=== PATIENT | female | born 1980 | race Caucasian/White ===

== ENCOUNTER 2020-09-18 20:01 | Inpatient (IN) | payer BC ==
[2020-09-18] MEDS ORDERED: Ondansetron 4 MG/2 ML SDV IVPUSH ONE (20:38)
[2020-09-18] MEDS ORDERED: HYDROmorphone 0.5 MG/0.5 ML Syringe IVPUSH ONE ×2 (20:38→21:32)
--- NOTE | 2020-09-18 20:43 | EDM.PDOC ---
ED HPI GENERAL MEDICAL PROBLEM - General Chief Complaint: Abdominal Pain Stated Complaint: ABDOMINAL PAIN Time Seen by Provider: 09/18/20 20:25 Source of Information: Reports: Patient History Limitations: Reports: No Limitations - History of Present Illness INITIAL COMMENTS - FREE TEXT/NARRATIVE: 40-year-old female who is been struggling with a week worth of abdominal pain due to diverticulitis. She was evaluated 1 week ago with vaginal pain, was found on ultrasound to have a large rectosigmoid area of the colon so a CT scan confirmed diverticulitis. She was in the hospital for 2 days on IV antibiotics, had a follow-up visit after her hospitalization and a repeat CAT scan that showed no significant change. Her white count had improved but she was still having a lot of pain so they readmitted her for 2 more days and she was discharged 2 days ago. Tonight the pain was so intense she did not think she could drive to [place] where her primary doctor is, so she came in here. No fevers or chills, nausea but no vomiting. She is currently on Cipro and metronidazole. Onset: Gradual Duration: Day(s): (7 days) Location: Reports: Abdomen (Left lower quadrant radiating into the vaginal and perineal area) Improves with: Reports: None Worsens with: Reports: Movement Associated Symptoms: Reports: Loss of Appetite, Malaise, Other (Nausea but no vomiting). Denies: Fever/Chills, Shortness of Breath Left Vaginal Pain Score (Numeric/FACES): 7 - Related Data Allergies Allergy/AdvReac Type Severity Reaction Status Date / Time No Known Allergies Allergy Verified 09/18/20 20:15 Home Meds: Home Meds Ciprofloxacin [Ciprofloxacin HCl] 1 tab PO BID 09/18/20 [History] Propranolol HCl 1 tab PO TID 09/18/20 [History] metroNIDAZOLE [Metronidazole] 1 tab PO TID 09/18/20 [History] Past Medical History HEENT History: Reports: Impaired Vision Gastrointestinal History: Reports: Other (See Below) Other Gastrointestinal History: diverticulitis Neurological History: Reports: Head Trauma Psychiatric History: Reports: ADHD - Infectious Disease History Infectious Disease History: Reports: Chicken Pox - Past Surgical History GI Surgical History: Reports: Cholecystectomy Musculoskeletal Surgical History: Reports: Other (See Below) Other Musculoskeletal Surgeries/Procedures:: discectomy L4-5 2013 Social & Family History - Tobacco Use Tobacco Use Status *Q: Current Every Day Tobacco User Years of Tobacco use: 22 Packs/Tins Daily: 0.5 - Caffeine Use Caffeine Use: Reports: Coffee ED ROS GENERAL - Review of Systems Review Of Systems: See Below Constitutional: Reports: Malaise, Decreased Appetite. Denies: Fever, Chills HEENT: Reports: No Symptoms Respiratory: Denies: Shortness of Breath Cardiovascular: Denies: Chest Pain GI/Abdominal: Reports: Abdominal Pain, Nausea. Denies: Constipation, Diarrhea, Vomiting : Reports: Other (Vaginal and perineal pain, no discharge or dysuria) Musculoskeletal: Reports: No Symptoms Skin: Reports: No Symptoms Neurological: Reports: No Symptoms ED EXAM, GI/ABD - Physical Exam Exam: See Below Exam Limited By: No Limitations General Appearance: Alert, Mild Distress (Looks fairly uncomfortable) Eyes: Bilateral: Normal Appearance (No jaundice) Head: Atraumatic Neck: Supple, Non-Tender Respiratory/Chest: Lungs Clear Cardiovascular: Regular Rate, Rhythm. No: Tachycardia GI/Abdominal Exam: Soft, Tender (Very tender with guarding and rebound tenderness in the left lower quadrant) Neurological: Alert, Oriented Psychiatric: Anxious Skin Exam: Warm, Dry Course - Vital Signs Last Recorded V/S: Last Vital Signs Temp 95.7 F L 09/19/20 02:19 Pulse 51 L 09/19/20 02:19 Resp 16 09/19/20 02:19 BP 106/54 L 09/19/20 02:19 Pulse Ox 96 09/19/20 02:19 - Orders/Labs/Meds Orders: Medication Orders Hydromorphone HCl (Dilaudid) 0.5 mg IVPUSH Q2H PRN PRN Reason: PAIN Last Admin: 09/19/20 02:18 Dose: 0.5 mg Documented by: Admin: 09/19/20 00:13 Dose: 0.5 mg Documented by: GERRY Dextrose/Lactated Ringer's (Dextrose 5%-Lactated Ringers) 1,000 mls @ 150 mls/hr IV ASD[facility]ED [facility] Aztreonam 1 gm/ Sodium (Chloride) 50 mls @ 100 mls/hr IV Q12H ASHLEY Last Admin: 09/18/20 23:28 Dose: 100 mls/hr Documented by: GERRY Ampicillin Sodium/Sulbactam (Sodium 1.5 gm/ Sodium Chloride) 50 mls @ 100 mls/hr IV Q8H ASHLEY Last Admin: 09/19/20 00:09 Dose: 100 mls/hr Documented by: GERRY Labs: Laboratory Tests 09/18/20 09/18/20 Range/Units 20:50 20:50 WBC 11.5 H (4.5-11.0) K/uL RBC 4.79 (3.30-5.50) M/uL Hgb 14.4 (12.0-15.0) g/dL Hct 44.5 (36.0-48.0) % MCV 93 (80-98) fL MCH 30 (27-31) pg MCHC 32 (32-36) % Plt Count 335 (150-400) K/uL Neut % (Auto) 55 (36-66) % Lymph % (Auto) 36 (24-44) % [place] % (Auto) 6 (2-6) % Eos % (Auto) 3 (2-4) % Baso % (Auto) 0 (0-1) % Sodium 141 (140-148) mmol/L Potassium 3.8 (3.6-5.2) mmol/L Chloride 105 (100-108) mmol/L Carbon Dioxide 25 (21-32) mmol/L Anion Gap 10.8 (5.0-14.0) mmol/L BUN 13 (7-18) mg/dL Creatinine 1.3 H (0.6-1.0) mg/dL Est Cr Clr Drug Dosing 62.21 mL/min Estimated GFR (MDRD) 45 L (>60) Glucose 86 (74-106) mg/dL Calcium 9.4 (8.5-10.1) mg/dL Meds: Medications Generic Name Dose Route Start Last Admin Trade Name Freq PRN Reason Stop Dose Admin Hydromorphone HCl 0.5 mg 09/18/20 22:25 09/19/20 02:18 Dilaudid IVPUSH 0.5 mg Q2H PRN Administration PAIN Dextrose/Lactated Ringer's 1,000 mls @ 150 mls/hr 09/18/20 22:25 Dextrose 5%-Lactated Ringers IV ASDIRECTED ASHLEY Aztreonam 1 gm/ Sodium 50 mls @ 100 mls/hr 09/18/20 23:30 09/18/20 23:28 Chloride IV 100 mls/hr Q12H ASHLEY Administration Ampicillin Sodium/Sulbactam 50 mls @ 100 mls/hr 09/19/20 00:00 09/19/20 00:09 Sodium 1.5 gm/ Sodium Chloride IV 100 mls/hr Q8H ASHLEY Administration Discontinued Medications Generic Name Dose Route Start Last Admin Trade Name Wilfrid PRN Reason Stop Dose Admin Hydromorphone HCl 0.5 mg 09/18/20 20:38 09/18/20 20:54 Dilaudid IVPUSH 09/18/20 20:39 0.5 mg ONETIME ONE Administration Hydromorphone HCl 0.5 mg 09/18/20 21:32 09/18/20 21:49 Dilaudid IVPUSH 09/18/20 21:33 0.5 mg ONETIME ONE Administration Sodium Chloride 1,000 mls @ 500 mls/hr 09/18/20 20:45 09/18/20 20:54 Normal Saline IV 500 mls/hr ASDIRECTED ASHLEY Administration Sodium Chloride 85 mls @ 3.5 mls/sec 09/18/20 21:30 09/18/20 21:41 Normal Saline IV 3.5 mls/sec ASDIRECTED ASHLEY Administration Sodium Chloride 1,000 mls @ 500 mls/hr 09/18/20 22:45 Normal Saline IV ASDIRECTED ASHLEY Iopamidol 100 ml 09/18/20 21:22 09/18/20 21:41 Isovue-300 (61%) IV 09/18/20 21:23 100 ml ONETIME ONE Administration Ondansetron HCl 4 mg 09/18/20 20:38 09/18/20 20:54 Zofran IVPUSH 09/18/20 20:39 4 mg ONETIME ONE Administration Sodium Chloride 10 ml 09/18/20 21:22 09/18/20 21:41 Saline Flush FLUSH 09/18/20 21:23 10 ml ONETIME ONE Administration - Re-Assessments/Exams Free Text/Narrative Re-Assessment/Exam: 09/18/20 20:43 An IV will be started, normal saline given and 0.5 mg of IV Dilaudid along with 1 mg of IV Zofran. CBC and BMP obtained, when labs return an IV enhanced contrast of the abdomen pelvis obtained. 09/18/20 21:09 Blood count is 11,500, creatinine slightly elevated at 1.3 and GFR 45, so IV fluids were increased to wide open and a CT of the abdomen and pelvis with IV contrast ordered. 09/18/20 22:15 IMPRESSION: Acute uncomplicated sigmoid diverticulitis. Colonoscopy recommended after resolution of acute symptoms to exclude an underlying mass. Discussed the above findings with Dr. Mendez, he accepted her for admission. She will be on IV Azactam and Unasyn and IV Dilaudid intermittent for pain control. Departure - Departure Time of Disposition: 22:53 Disposition: Admitted As Inpatient 66 Clinical Impression: Diverticulitis large intestine Qualifiers: Diverticulitis bleeding: without bleeding Diverticulitis complication: without perforation or abscess Qualified Code(s): K57.32 - Diverticulitis of large intestine without perforation or abscess without bleeding - Discharge Information Sepsis Event Note (ED) - Evaluation Sepsis Screening Result: No Definite Risk - Focused Exam Vital Signs: Vital Signs Temp Pulse Resp BP 09/18/20 20:12 96.2 F L 88 16 153/100 H
[2020-09-18] MEDS ORDERED: Sodium Chloride 0.9% 1,000 ML IV SCH ×2 (20:45→22:45)
[2020-09-18] MEDS ORDERED: Iopamidol 612 MG/ML 500 ML Multipack Bottle IV ONE (21:22)
[2020-09-18] MEDS ORDERED: Sodium Chloride 0.9% 10 ML Syringe FLUSH ONE (21:22)
--- NOTE | 2020-09-18 22:14 | CRLCT ---
INDICATION: Worsening diverticulitis. TECHNIQUE: IV contrast-enhanced CT abdomen and pelvis. 100 mL Isovue 300 injected. COMPARISON: None. FINDINGS: Cholecystectomy. Mild resulting biliary dilation. Liver, spleen, pancreas, adrenal glands, and kidneys are unremarkable. No bowel obstruction. Appendix is normal. There is diverticulosis involving the sigmoid and descending colon. There is a segment of the sigmoid colon that demonstrates wall thickening and mild adjacent inflammatory change, consistent with diverticulitis. No abscess or free air. No free fluid. Uterus and adnexa are unremarkable. No adenopathy. IMPRESSION: Acute uncomplicated sigmoid diverticulitis. Colonoscopy recommended after resolution of acute symptoms to exclude an underlying mass. Please note that all CT scans at this facility use dose modulation, iterative reconstruction, and/or weight-based dosing when appropriate to reduce radiation dose to as low as reasonably achievable. Dictated by Joaquin Aguiar MD @ Sep 18 2020 10:10PM Signed by Dr. Joaquin Aguiar @ Sep 18 2020 10:13PM
[2020-09-19] MEDS ORDERED: Ampicillin/Sulbactam Na 1.5 GM in Sodium Chloride 0.9% 50 ML IV SCH ×2
[2020-09-19] MEDS: HYDROmorphone 0.5 MG/0.5 ML Syringe IVPUSH PRN ×3 (00:13→07:21)
[2020-09-19] MEDS: Dextrose 5%-Lactated Ringers 1,000 ML IV SCH ×3 (07:21→22:34)
[2020-09-19] MEDS ORDERED: Nicotine 21 MG/24 Hr Patch TRDERM PRN (07:35)
[2020-09-19] MEDS ORDERED: Naloxone 0.4 MG/ML SDV IV PRN (08:00)
[2020-09-19] MEDS: HYDROmorphone/Normal Saline 15 MG/30 ML PCA IV PRN (09:32)
[2020-09-19] MEDS: Ampicillin/Sulbactam Na 3 GM in Sodium Chloride 0.9% 100 ML IV SCH ×3 (09:32→19:25)
[2020-09-19] MEDS: Pantoprazole 40 MG Vial IV SCH (09:43)
[2020-09-19] MEDS ORDERED: Propranolol 40 MG Tab PO PRN (10:23)
[2020-09-19] MEDS: Ondansetron 4 MG/2 ML SDV IVPUSH PRN (12:05)
[2020-09-19] MEDS ORDERED: diphenhydrAMINE 50 MG/ML SDV IVPUSH PRN (13:27)
[2020-09-19] MEDS ORDERED: Fluconazole 100 MG Tab PO ONE (18:15)
[2020-09-19] MEDS ORDERED: Fluconazole 150 MG Tab PO ONE (18:19)
[2020-09-19] MEDS: [UNRECOGNIZED DRUG - REMARK] TRDERM SCH (21:13)
[2020-09-20] MEDS: Ampicillin/Sulbactam Na 3 GM in Sodium Chloride 0.9% 100 ML IV SCH ×4 (01:59→21:02)
[2020-09-20] MEDS: Dextrose 5%-Lactated Ringers 1,000 ML IV SCH ×3 (06:16→22:45)
[2020-09-20] MEDS ORDERED: Meropenem 500 MG SDV ONE (07:07)
[2020-09-20] MEDS: Pantoprazole 40 MG Vial IV SCH (08:23)
--- NOTE | 2020-09-20 09:29 | PN ---
DATE OF SERVICE: 09/19/2020 This is a 40-year-old female now with a third hospitalization over last week for diverticulitis. A CT scan was obtained last night which shows diverticulitis in the pelvis. I suspect she is probably hiding an abscess in that area given the refractoriness to the medical management. She was admitted twice earlier this week in [place] and then discharged with oral antibiotics. On examination, the patient is clinically stable, afebrile with stable vital signs. Does have a fair bit of discomfort in the left lower quadrant and suprapubic area especially where the diverticulitis is located in the sigmoid colon more or less dropping into the pelvis. At this point, the patient appeared to have diverticulitis refractory to medical management. As indicated, I suspect there is probably some abscess hiding within the folds of the colon involving the area of the diverticulitis. Plan will be to proceed with giving the IV antibiotics, later we will switch over to Dilaudid SPECIAL DUTY NURSE and plan a sigmoid colon resection. This is the case we should be able to likely do primary anastomosis. She presently is on Azactam and Unasyn, which should provide adequate coverage. Potential risks of the procedure including bleeding, infection, leaks from the anastomosis requiring temporary colostomy were gone over, possibility she has a viscera, the patient wishes to proceed so we plan for tomorrow morning with general anesthetic, TAP block, and ketamine loading dose infusion. We will give her some enterically 2 hours preoperatively, continue that perioperatively as well. Troy Mendez MD /[id number]
--- NOTE | 2020-09-20 10:08 | PN ---
DATE OF SERVICE: 09/20/2020 SUBJECTIVE: Kyra was admitted on 09/18/2020 for diverticulitis. Kyra will be having surgery today. Case to follow. REVIEW OF SYSTEMS: Negative for any pertinent positives or negatives. OBJECTIVE: GENERAL: Kyra Carreon is a pleasant 40-year-old female. She is alert and orientated. VITAL SIGNS: TPR; 97.8, 44, 16, and blood pressure 92/45. HEENT: Negative. NECK: Supple. HEART: Regular rate and rhythm. LUNGS: Clear. ABDOMEN: Minimally tender in the lower quadrant, right is greater than left. EXTREMITIES: Without peripheral edema. NEUROLOGIC: Intact. PSYCHIATRIC: Normally anxious mood and affect appropriate. ASSESSMENT: Diverticulitis. PLAN: Scheduled for sigmoid colon resection. General anesthesia with TAP block, ketamine loading dose and infusion. Case to follow 09/20/2020. Surgeon: Troy Mendez MD. After preoperative evaluation and discussion of possible risks and possible complications, she wished to proceed with surgical procedure. Gina Hernandez PA-C /[id number]
[2020-09-20] MEDS ORDERED: Ondansetron 4 MG/2 ML SDV ONE (10:38)
[2020-09-20] MEDS ORDERED: fentaNYL 250 MCG/5 ML SDV ONE ×2 (10:38→12:39)
[2020-09-20] MEDS ORDERED: Neostigmine Methylsulfate 1 MG/ML 5 ML Syringe ONE (10:38)
[2020-09-20] MEDS ORDERED: Glycopyrrolate 0.2 MG/ML 5 ML MDV ONE (10:38)
[2020-09-20] MEDS ORDERED: Propofol 200 MG/20 ML SDV ONE (10:38)
[2020-09-20] MEDS ORDERED: Dexamethasone 4 MG/ML SDV ONE (10:38)
[2020-09-20] MEDS ORDERED: Succinylcholine 200 MG/10 ML MDV ONE (10:38)
[2020-09-20] MEDS ORDERED: Rocuronium 50 MG/5 ML Vial ONE ×2 (10:38→13:34)
[2020-09-20] MEDS ORDERED: Ropivacaine 50 ML, dexAMETHasone 8 MG, EPINEPHrine 0.4 MG, Sodium Chloride 0.9% 27.6 ML NERVRT SCH ×4 (11:00)
[2020-09-20] MEDS ORDERED: Ketamine 50 MG in Sodium Chloride 0.9% 49.5 ML IV SCH (11:00)
[2020-09-20] MEDS ORDERED: Ketamine 500 MG/5 ML MDV IV SCH (11:00)
[2020-09-20] MEDS ORDERED: Lactated Ringers 1,000 ML ONE (12:57)
[2020-09-20] MEDS ORDERED: fentaNYL 100 MCG/2 ML SDV ONE (13:35)
[2020-09-20] MEDS ORDERED: hydrOXYzine HCL 100 MG/2 ML SDV IM ONE (14:12)
[2020-09-20] MEDS: Cyclobenzaprine 10 MG Tab PO PRN (14:47)
[2020-09-20] MEDS ORDERED: Pramipexole 0.5 MG Tab PO PRN (15:18)
[2020-09-20] MEDS ORDERED: Meclizine 25 MG Tab PO PRN (15:24)
[2020-09-20] MEDS: hydrOXYzine HCL 100 MG/2 ML SDV IM PRN (16:21)
[2020-09-20] MEDS: Ondansetron 4 MG/2 ML SDV IVPUSH PRN (16:28)
[2020-09-20] MEDS ORDERED: Propranolol 40 MG Tab PO PRN (17:02)
[2020-09-20] MEDS: Acetaminophen 500 MG Tab PO SCH ×2 (17:25→22:47)
[2020-09-20] MEDS: Ketorolac 60 MG/2 ML SDV IM SCH (20:42)
[2020-09-20] MEDS ORDERED: Propranolol 40 MG Tab PO SCH (21:00)
[2020-09-20] MEDS: [UNRECOGNIZED DRUG - REMARK] TRDERM SCH (21:03)
[2020-09-20] MEDS: Fluconazole 100 MG Tab PO SCH (21:03)
[2020-09-20] MEDS: Montelukast 10 MG Tab PO SCH (21:04)
[2020-09-21] MEDS: Ampicillin/Sulbactam Na 3 GM in Sodium Chloride 0.9% 100 ML IV SCH ×4 (02:30→20:15)
[2020-09-21] MEDS: Ketorolac 60 MG/2 ML SDV IM SCH (02:39)
[2020-09-21] MEDS: Acetaminophen 500 MG Tab PO SCH ×4 (04:00→21:41)
[2020-09-21] MEDS: HYDROmorphone/Normal Saline 15 MG/30 ML PCA IV PRN (04:03)
[2020-09-21] MEDS: Cyclobenzaprine 10 MG Tab PO PRN ×3 (07:36→23:39)
--- NOTE | 2020-09-21 07:58 | PN ---
DATE OF SERVICE: 09/21/2020 SUBJECTIVE: Kyra is postoperative day #1. There was some difficulty with pain control last night and she was given some Toradol and states that really made a difference. Pain currently is controlled with the TEMPORARY RECEPTIONIST. She did request some Ensure Protein supplement. She has no other concerns or questions today. OBJECTIVE: GENERAL: Kyra Carreon is a pleasant 40-year-old female. She is alert and orientated. HEENT: Negative. NECK: Supple. HEART: Regular rate and rhythm. LUNGS: Clear. ABDOMEN: Dressings dry and intact. Abdominal binder is on. EXTREMITIES: Without peripheral edema. ASSESSMENT: Exploratory laparotomy: 1. Rectosigmoid colon resection and coloproctostomy. 2. Drainage of pericolonic abscess. 3. Excision of fibrous peritoneal implant, right pelvic wall, and placement of mesh to position omentum into pelvis. 4. Perforated sigmoid colon diverticulitis and periappendiceal abscess and fibrous peritoneal implant, right pelvic sidewall. Date of procedure: 09/20/2020. Surgeon: Troy Mendez MD. PLAN: 1. Ibuprofen 600 mg p.o. q.6 hours scheduled. 2. Schedule, have consent signed for delayed primary closure. Tap block with IV and local sedation, 07:15, 09/22/2020. Surgeon: Troy Mendez MD. 3. N.p.o. after midnight, but may take ibuprofen and Tylenol with sips of water. 4. Discontinue Verduzco. 5. Decrease IV to 75 mL per hour. 6. Regular diet. 7. Protein supplements q.i.d. 8. Dulcolax 10 mg b.i.d. p.o. scheduled. 9. Colace 100 mg b.i.d. oral scheduled. 10.Continue use of incentive spirometer and ambulation. 11.We will evaluate p.r.n. or in a.m. Gina Hernandez PA-C /[id number]
[2020-09-21] MEDS: Bisacodyl 5 MG Tab PO SCH ×2 (08:54→20:16)
[2020-09-21] MEDS: Pantoprazole 40 MG Vial IV SCH (08:55)
[2020-09-21] MEDS: Docusate Sodium 100 MG Cap PO SCH ×2 (08:56→20:16)
[2020-09-21] MEDS: NORETHINDRONE 0.35 MG PO SCH (08:57)
[2020-09-21] MEDS: Amphetamine/Dextroamphetamine Salts 10 MG Tab PO SCH (09:00)
[2020-09-21] MEDS: Amphetamine/Dextroamphetamine Salts 10 MG Cap.ER PO SCH (09:00)
[2020-09-21] MEDS ORDERED: Albuterol/Ipratropium 3.0-0.5 MG/3 ML Neb Soln NEB PRN (09:14)
[2020-09-21] MEDS: Ibuprofen 600 MG Tab PO SCH ×3 (11:27→23:39)
[2020-09-21] MEDS: Dextrose 5%-Lactated Ringers 1,000 ML IV SCH (17:27)
[2020-09-21] MEDS ORDERED: valACYclovir 1,000 MG Tab PO SCH (17:30)
[2020-09-21] MEDS: [UNRECOGNIZED DRUG - REMARK] TRDERM SCH (20:16)
[2020-09-21] MEDS: Fluconazole 100 MG Tab PO SCH (20:16)
[2020-09-21] MEDS: Montelukast 10 MG Tab PO SCH (20:17)
[2020-09-22] MEDS: Ampicillin/Sulbactam Na 3 GM in Sodium Chloride 0.9% 100 ML IV SCH ×4 (02:09→20:24)
[2020-09-22] MEDS: Acetaminophen 500 MG Tab PO SCH ×4 (03:26→23:13)
[2020-09-22] MEDS: Ibuprofen 600 MG Tab PO SCH (05:40)
[2020-09-22] MEDS ORDERED: Bupivacaine 0.5% 50 ML MDV ONE (06:38)
[2020-09-22] MEDS ORDERED: Meropenem 500 MG SDV ONE (06:38)
[2020-09-22] MEDS ORDERED: Lidocaine 1% with EPINEPHrine 1:100,000 50 ML MDV ONE (06:39)
[2020-09-22] MEDS ORDERED: Midazolam 1 MG/ML 2 ML SDV ONE (07:04)
[2020-09-22] MEDS ORDERED: Propofol 200 MG/20 ML SDV ONE (07:04)
[2020-09-22] MEDS ORDERED: fentaNYL 100 MCG/2 ML SDV ONE (07:04)
[2020-09-22] MEDS ORDERED: Ropivacaine 50 ML, dexAMETHasone 8 MG, EPINEPHrine 0.4 MG, Sodium Chloride 0.9% 27.6 ML NERVRT SCH ×4 (07:15)
[2020-09-22] MEDS ORDERED: Ketorolac 60 MG/2 ML SDV ONE (07:28)
[2020-09-22] MEDS ORDERED: Lactated Ringers 1,000 ML ONE (07:29)
--- NOTE | 2020-09-22 08:04 | PCM.SN.2 ---
- Free Text/Narrative Note: 09/22/2020 To Whom it May Concern: Kyra Carreon 1980 Kyra has been hospitalized from 09/18/2020 until present. Return to work will be determined pending condition and will be evaluated at first post operative appointment after discharge. Sincerely, Gina Hernandez PA-C 09/22/2020
[2020-09-22] MEDS: HYDROmorphone/Normal Saline 15 MG/30 ML PCA IV PRN (08:45)
[2020-09-22] MEDS: Bisacodyl 5 MG Tab PO SCH ×2 (08:49→20:26)
[2020-09-22] MEDS: Docusate Sodium 100 MG Cap PO SCH ×2 (08:49→20:26)
[2020-09-22] MEDS: Pantoprazole 40 MG Tab.CR PO SCH (08:49)
[2020-09-22] MEDS: NORETHINDRONE 0.35 MG PO SCH (08:51)
[2020-09-22] MEDS: Amphetamine/Dextroamphetamine Salts 10 MG Cap.ER PO SCH (08:57)
[2020-09-22] MEDS: Amphetamine/Dextroamphetamine Salts 10 MG Tab PO SCH (08:57)
[2020-09-22] MEDS: valACYclovir 1,000 MG Tab PO SCH ×2 (10:51→23:13)
--- NOTE | 2020-09-22 12:18 | PN ---
DATE OF SERVICE: 09/22/2020 SUBJECTIVE: Kyra is n.p.o. She will be going down for a delayed primary closure. Vital signs have been stable. She has had a difficult time getting her pain under control. REVIEW OF SYSTEMS: Remainder of review of systems negative for any pertinent positives and negatives. OBJECTIVE: GENERAL: Kyra Carreon is a pleasant 40-year-old female. VITAL SIGNS: TPR is 96.6, 60, 16, blood pressure 113/59. HEENT: Negative. NECK: Supple. HEART: Regular rate and rhythm. LUNGS: Clear. ABDOMEN: Dressing dry and intact. Abdominal binder is on. EXTREMITIES: Without peripheral edema. ASSESSMENT: Exploratory laparotomy: 1. Rectosigmoid colon resection and coloproctostomy. 2. Drainage of pericolonic abscess. 3. Excision of fibrous peritoneal implant, right pelvic wall and placement of mesh to position omentum into pelvis. 4. Perforated sigmoid colon diverticulitis and periappendiceal abscess and fibrous peritoneal implant right pelvic sidewall. 5. Date of procedure: 09/20/2020. Surgeon: Troy Mendez MD. PLAN: 1. Orders will be written after delayed primary closure. 2. We will evaluate p.r.n. or in a.m. Gina Hernandez PA-C /[id number]
--- NOTE | 2020-09-22 13:11 | US ---
VL Duplex Lwr Ext Veins Ltd Rt INDICATION: right leg numb FINDINGS: Ultrasound examination of the lower extremity using Doppler and compressive technique demonstrates that the common femoral, femoral, and popliteal veins are patent, and negative for thrombus. The calf veins were segmentally visualized and are negative where seen. IMPRESSION: Negative for deep venous thrombosis.
[2020-09-22] MEDS: Ketorolac 30 MG/ML SDV IVPUSH SCH (17:27)
[2020-09-22] MEDS: Dextrose 5%-Lactated Ringers 1,000 ML IV SCH (17:32)
[2020-09-22] MEDS: Fluconazole 100 MG Tab PO SCH (20:25)
[2020-09-22] MEDS: Montelukast 10 MG Tab PO SCH (20:27)
[2020-09-22] MEDS: [UNRECOGNIZED DRUG - REMARK] TRDERM SCH (20:30)
[2020-09-23] MEDS: Ampicillin/Sulbactam Na 3 GM in Sodium Chloride 0.9% 100 ML IV SCH ×4 (02:13→19:52)
[2020-09-23] MEDS: Acetaminophen 500 MG Tab PO SCH ×4 (03:59→21:20)
[2020-09-23] MEDS: Ketorolac 30 MG/ML SDV IVPUSH SCH ×2 (06:03)
[2020-09-23] MEDS: Pantoprazole 40 MG Tab.CR PO SCH (07:00)
[2020-09-23] MEDS: Amphetamine/Dextroamphetamine Salts 10 MG Tab PO SCH (08:15)
[2020-09-23] MEDS: oxyCODONE 5 MG Tab PO PRN ×4 (08:15→21:41)
[2020-09-23] MEDS: Amphetamine/Dextroamphetamine Salts 10 MG Cap.ER PO SCH (08:15)
[2020-09-23] MEDS: Bisacodyl 5 MG Tab PO SCH ×2 (08:16→21:17)
[2020-09-23] MEDS: Docusate Sodium 100 MG Cap PO SCH ×2 (08:16→21:16)
[2020-09-23] MEDS: valACYclovir 1,000 MG Tab PO SCH ×2 (08:17→21:20)
[2020-09-23] MEDS: NORETHINDRONE 0.35 MG PO SCH (08:17)
--- NOTE | 2020-09-23 08:25 | PN ---
DATE OF SERVICE: 09/23/2020 SUBJECTIVE: Kyra had her delayed primary closure yesterday. She had an office Doppler study to rule out DVT for some leg numbness and that has gone away. Pain is controlled with TOBACCO CHECKOUT CLERK and cyclobenzaprine. Vital signs have been stable, up ambulating. Oral intake 1280. Urine output 420 and ROBINA drain put out 20 mL of a light pink drainage. She is passing flatus. REVIEW OF SYSTEMS: Remainder of review of systems negative for any pertinent positives and negatives. OBJECTIVE: GENERAL: Kyra Carreon is a pleasant 40-year-old female. She is alert and orientated. VITAL SIGNS: TPR is 96.8, 64, 16. Blood pressure 122/55. HEENT: Negative. NECK: Supple. HEART: Regular rate and rhythm. LUNGS: Clear. ABDOMEN: Dressing dry and intact. Aquacel dressing is on. EXTREMITIES: Without peripheral edema. ASSESSMENT: 1. Exploratory laparotomy with: a. Rectosigmoid colon resection and coloproctostomy. b. Drainage of pericolonic abscess. c. Excision of fibrous peritoneal implant, right pelvic wall and placement of mesh to position omentum into pelvis. d. Perforated sigmoid colon diverticulitis and periappendiceal abscess and fibrous peritoneal implant, right pelvic sidewall. Date of procedure: 09/20/2020. Surgeon: Troy Mendez MD. 2. Delayed primary closure for open abdominal incision on 09/22/2020. Surgeon: Troy Mendez MD. PLAN: 1. Discontinue TOBACCO CHECKOUT CLERK and continuous pulse ox. 2. Saline lock IV. 3. Discontinue IV Toradol. 4. Ibuprofen 600 mg q.6 hours scheduled p.o. 5. May shower. 6. Oxycodone mg q.4 hours p.r.n. pain. 7. Referral to dietitian for diverticulitis and colon resection. 8. Continue use of incentive spirometer. 9. We will evaluate p.r.n. or in a.m. 10.Plan discharge in a.m. Gina Hernandez PA-C /[id number]
[2020-09-23] MEDS: Ibuprofen 600 MG Tab PO SCH ×2 (12:45→17:26)
[2020-09-23] MEDS: Cyclobenzaprine 10 MG Tab PO PRN ×2 (14:13→21:41)
[2020-09-23] MEDS: [UNRECOGNIZED DRUG - REMARK] TRDERM SCH (21:17)
[2020-09-23] MEDS: Fluconazole 100 MG Tab PO SCH (21:20)
[2020-09-23] MEDS: Montelukast 10 MG Tab PO SCH (21:20)
[2020-09-24] MEDS: Ibuprofen 600 MG Tab PO SCH ×3 (01:37→11:19)
[2020-09-24] MEDS: oxyCODONE 5 MG Tab PO PRN ×3 (01:39→11:19)
[2020-09-24] MEDS: Ampicillin/Sulbactam Na 3 GM in Sodium Chloride 0.9% 100 ML IV SCH ×2 (01:39→08:56)
[2020-09-24] MEDS: Acetaminophen 500 MG Tab PO SCH ×2 (04:28→10:08)
[2020-09-24] MEDS: hydrOXYzine HCL 100 MG/2 ML SDV IM PRN (04:33)
[2020-09-24] MEDS: Pantoprazole 40 MG Tab.CR PO SCH (07:39)
[2020-09-24] MEDS: NORETHINDRONE 0.35 MG PO SCH (08:14)
[2020-09-24] MEDS: valACYclovir 1,000 MG Tab PO SCH (08:24)
[2020-09-24] MEDS: Amphetamine/Dextroamphetamine Salts 10 MG Tab PO SCH (08:27)
[2020-09-24] MEDS: Amphetamine/Dextroamphetamine Salts 10 MG Cap.ER PO SCH (08:27)
--- NOTE | 2020-09-24 11:47 | DISCH ---
ADMISSION DIAGNOSES: Diverticulitis, attention deficit hyperactivity disorder, nicotine addiction, recent recurrence of concussion symptoms. DISCHARGE DIAGNOSES: 1. Exploratory laparotomy with: a. Rectosigmoid colon resection and coloproctostomy. b. Drainage of pericolonic abscess. c. Excision of fibrous peritoneal implant, right pelvic wall, and placement of mesh to position omentum into pelvis. d. Perforated sigmoid colon diverticulitis and periappendiceal abscess and fibrous peritoneal implant, right pelvic sidewall. Date of procedure 09/20/2020. Surgeon: Troy Mendez MD 1. Delayed primary closure of open abdominal incision, 09/22/2020. Surgeon: Troy Mendez MD. HISTORY: Kyra is a 40-year-old female who presented to the emergency room with increasing abdominal pain and known diverticulitis. She was admitted to the hospital on 09/18/2020, had a surgical consult, and was on IV antibiotics, and her surgery as stated above was on 09/20/2020 with delayed primary closure 09/22/2020. She had no operative complications. Her diet was advanced as tolerated. Vital signs remained stable. Pain was controlled initially with a CERTIFIED CREDIT COUNSELOR, then oral pain medication. She had bowel movements starting on 09/23/2020 after bowel stimulation and she had a total of 7. Kyra received dietary instruction and she was able to be discharged to home without any complications on 09/24/2020. PHYSICAL EXAMINATION: GENERAL: Kyra Carreon is a 40-year-old female, alert and oriented. VITAL SIGNS: TPR is 97.4, 66, 16, blood pressure 116/62. HEENT: Negative. NECK: Supple. HEART: Regular rate and rhythm. LUNGS: Clear. ABDOMEN: Monica intact. Aquacel dressing was changed. There is more tenderness to the right of the incision than the left. EXTREMITIES: Without peripheral edema. DISPOSITION: Discharged to home. CONDITION: Stable and improving. FOLLOWUP APPOINTMENT: Troy Mendez MD, on 09/29/2020 at 10 a.m. HOME MEDICATIONS: 1. Oxycodone 5 mg p.o. q.4 hours p.r.n. pain, #42. 2. Ibuprofen 600 mg p.o. q.6 hours, #40. 3. Tylenol 1000 mg q.6 hours p.r.n. pain. 4. Flexeril 10 mg p.o. q.8 hours p.r.n. muscle spasms, #30. She is to resume her home medications. DIET: GI, low residue, low-fiber diet. Drink 8 to 10 glasses of water a day. ACTIVITY: No lifting greater than 10 pounds for 6 weeks. OTHER ACTIVITY: Walk 6 times daily inside your home. Driving, do not drive for 1 week or within 6 hours of taking narcotic pain medication. Shower/bathing: May shower. Wound incision care: Keep operative site clean and dry. Wear an abdominal binder for 6 weeks and then as tolerated. Notify provider if any fever, increased pain, swelling, redness, drainage, nausea, vomiting. OTHER INSTRUCTIONS: Take off Aquacel dressing in 3 days. Use incentive spirometer 10 times every hour while awake for 1 week. /[id number]
--- NOTE | 2020-09-27 15:46 | PN ---
DATE OF SERVICE: 09/22/2020 The patient has been afebrile with stable vital signs. She had quite a bit of pain after having a sneeze or cough yesterday. The THERAPEUTIC ACTIVITIES SERVICES WORKER along with ibuprofen and Tylenol have not been satisfactory as far as pain control. I am wondering if the drug is somewhat interfering with the narcotic use and we will stop that today. Otherwise, move over to some IM Toradol today and Flexeril and she did undergo the delayed primary closure. She feels like she is getting a fever blister on her lips and we will start on Valtrex. ROBINA drain will be coming out. Resume regular diet after the closure along with the bowel stimulation. Troy Mendez MD /[id number]
--- NOTE | 2020-09-27 15:52 | OR ---
DATE OF PROCEDURE: 09/22/2020 SURGEON: Troy Mendez MD PREOPERATIVE DIAGNOSIS: Open abdominal incision. POSTOPERATIVE DIAGNOSIS: Open abdominal incision. OPERATIVE PROCEDURE: Delayed primary closure of open abdominal incision. ANESTHESIA: IV sedation plus local. INDICATION FOR PROCEDURE: This is a 40-year-old status post a rectosigmoid resection for a perforated diverticulitis with pericolonic abscess. Because of the high risk of wound infection, the skin and subcutaneous tissue were left open at the initial procedure for a planned delayed primary closure at this time. Potential risks including bleeding and infection were reviewed, and the patient wishes to proceed. DETAILS OF PROCEDURE: The patient was taken to the operating room, placed in a supine position. IV sedation was administered, after which the abdominal dressing was taken down. The wound was inspected, found to be clean. Wound was then prepped and draped, anesthetized with 1% lidocaine mixed with Marcaine, and irrigated with meropenem-containing saline solution. Bilateral transversus abdominis plane blocks were then placed using ultrasound guidance. Incision was then closed with three layers of 3-0 and 4-0 Vicryl stitch deep and then glenn for the skin. Dressing was applied. The patient was taken to the recovery room in satisfactory condition. Troy Mendez MD /[id number]
--- NOTE | 2020-10-11 12:15 | OR ---
DATE OF PROCEDURE: 09/20/2020 SURGEON: Troy Mendez MD PREOPERATIVE DIAGNOSIS: Perforated sigmoid colon diverticulitis with pericolonic abscess. POSTOPERATIVE DIAGNOSES: 1. Perforated sigmoid colon diverticulitis with pericolonic abscess. 2. Fibrinous peritoneal implant, right-sided pelvic sidewall. OPERATIVE PROCEDURE: Exploratory laparotomy with: 1. Rectosigmoid colon resection with coloproctostomy (21844). 2. Drainage of pericolonic abscess (88193). 3. Excision of fibrinous peritoneal implant, right pelvic sidewall (64109). 4. Mobilization of omentum into pelvis to displace small bowel from pelvic wall to limit adhesion formation at that level (40979). ANESTHESIA: General. LEARNING AND DEVELOPMENT SPECIALIST: Gina Hernandez PA-C INDICATION FOR PROCEDURE: This is a 40-year-old female who recently has been hospitalized twice for diverticulitis and on CT scan appeared to have a perforated diverticulitis with focal pericolonic abscess. The plan is to proceed with an exploratory laparotomy, colorectal resection with probable primary anastomosis and drainage of abscess as indicated. Potential risks of the procedure including bleeding, infection, leaks from GI tract closure such as coloproctostomy potentially requiring a secondary colostomy were gone over along with injury to the other pelvic and abdominal structures and the patient wishes to proceed. DETAILS OF PROCEDURE: The patient was taken to the operating room and placed in a supine position. After general endotracheal anesthesia was induced, a Verduzco catheter was inserted, and the patient converted to a lithotomy position. The abdominal prep was undertaken along with perianal prep. Lower midline incision from the umbilicus to the pubis was made and carried down through the full-thickness abdominal wall. Upon entering the peritoneal cavity, some omental adhesions over the area of inflammation which was fairly low within the pelvis were identified. As one mobilized the inflammatory mass consisting of the distal sigmoid colon more or less just above the junction with the rectum was undertaken. The abscess which measured around 10 to 15 mL in volume and contained a creamy purulent material was drained. Cultures of this were obtained. During the course of dissection, an area of fibrinous peritoneal implant on the right pelvic sidewall measuring around 1 cm was identified and excised and sent as a separate specimen. The rectum was then divided just below the level of the inflammation of the ELHAM curved black load and the colon then divided proximal to the inflammation with ELHAM purple load. The underlying mesentery was then divided with mesenteric and vascular ELHAM loads and the specimen delivered from the field. Off the field, the specimen was opened where it was confirmed there appeared to be no evidence of neoplasia, i.e. there appeared to be otherwise straightforward diverticulitis with the complications as outlined above. At this point, the anvil of a 28 mm EEA stapler was passed through a small opening made in the divided sigmoid colon which was then restapled and the anvil brought out through the most dependent portion of the staple line and just posterior to the staple line through the rectum and the main body of the EEA stapler was brought up to the apex of the divided rectum and the 2 components of the stapler then united, thus completing the coloproctostomy. Upon removal of the stapler, double donuts of mucosa were noted within it and the stapler then removed. The colorectal anastomosis was then reinforced with several seromuscular 3-0 Vicryl sutures along with fibrin sealant. Prior to closure, the colonoscope was passed into the rectum to visualize the anastomosis and the pelvis was flooded with a meropenem-containing saline solution which was also used to irrigate the pelvis. No leaks were seen and an intact- appearing anastomosis was evident. At this point, a Jarret-Cary drain was taken out through the right midabdomen positioned adjacent to the colorectal anastomosis, and from there down into the depths of the pelvis. The omentum was then mobilized down into the pelvis and sutured there with some 3-0 Vicryl stitch so as to prevent or limit small-bowel adhesion formation within the pelvis. The midline peritoneum was then approximated with #2 Vicryl stitch and the anterior fascia was approximated with a #2 Vicryl stitch. The skin and subcutaneous tissue were felt to be high risk for wound infection if a primary anastomosis was undertaken. Given this, these were packed open with Iodoform gauze. Prior to closure, the patient had bilateral transversus abdominis plane blocks placed and the patient taken to the recovery room in satisfactory condition. Physician energy assistant, Gina Hernandez, played an essential role in assisting in this case, helping to position the patient, retract structures as needed as well as suturing and cutting sutures when indicated. Her presence improved patient safety and decreased the operative time. Troy Mendez MD /[id number]
== END 2020-09-24 11:45 | disposition home or self-care (01) | DRG 221 ==
LOC: JP.ED 20:01 → JP.MS 22:46
PROVIDERS: ADMIT Surgery; ATTEND Surgery
PROC: XW033N5 Introduction of Meropenem-vaborbactam Anti-infective into Peripheral Vein, Percutaneous Approach, New Technology Group 5 (ICD-10-PCS; 2020-09-20)
PROC: 0DBW0ZZ Excision of Peritoneum, Open Approach (ICD-10-PCS; 2020-09-20)
PROC: 0DNU0ZZ Release Omentum, Open Approach (ICD-10-PCS; 2020-09-20)
PROC: 0DBN0ZZ Excision of Sigmoid Colon, Open Approach (ICD-10-PCS; 2020-09-20)
PROC: 0DBP0ZZ Excision of Rectum, Open Approach (ICD-10-PCS; 2020-09-20)
PROC: 0W9G0ZZ Drainage of Peritoneal Cavity, Open Approach (ICD-10-PCS; 2020-09-20)
PROC: 0WQF0ZZ Repair Abdominal Wall, Open Approach (ICD-10-PCS; principal; 2020-09-22)
DX: K57.20 Diverticulitis of large intestine with perforation and abscess without bleeding (principal); H54.7 Unspecified visual loss; F90.9 Attention-deficit hyperactivity disorder, unspecified type; F17.200 Nicotine dependence, unspecified, uncomplicated
CPT/HCPCS: 36415; 74177; 80048; 85025; 87070; 87075; 87077; 87205; 88305; 88307; 93971-26; 93971-RT; 94640; 94762; 96374; 96375; 96376; 99285; 99285-25; A9270-GY; C9113; J0171; J0295; J0330; J1100; J1170; J1200; J1885; J2185; J2250; J2405; J2704; J2710; J2795; J3010; J3410; J3490; J7030; J7120; J7121; J7620-GY; Q9967

== ENCOUNTER 2020-09-28 11:46 | Inpatient (IN) | payer BC ==
--- NOTE | 2020-09-28 12:30 | EDM.PDOC ---
ED HPI GENERAL MEDICAL PROBLEM - General Chief Complaint: Abdominal Pain Stated Complaint: LOWER STOMACH PAIN Time Seen by Provider: 09/28/20 12:18 Source of Information: Reports: Patient History Limitations: Reports: No Limitations - History of Present Illness INITIAL COMMENTS - FREE TEXT/NARRATIVE: pt had a colon resection for diverticulitis and was discharged from the hosp on Sunday. She has not had a BM nicolle discharge. She is having lower abdomanal pain. Onset: Gradual Duration: Hour(s): Location: Reports: Abdomen Associated Symptoms: Reports: Other ( drainage from the wound. Mild redness of tghe wound. ) - Related Data Allergies Allergy/AdvReac Type Severity Reaction Status Date / Time No Known Allergies Allergy Verified 09/28/20 12:05 Home Meds: Home Meds Propranolol HCl 1 tab PO TID PRN 09/18/20 [History] Amphetamine/Dextroamphetamine [Adderall XR] 15 mg PO DAILY 09/19/20 [History] Cetirizine HCl [Zyrtec] 10 mg PO DAILY PRN 09/19/20 [History] Dextroamphetamine/Amphetamine [Adderall Xr 10 mg Capsule] 10 mg PO DAILY 09/19/20 [History] Fish Oil/[place]-3 Fatty Acids [Fish Oil 1,000 MG] 1 each PO DAILY 09/19/20 [History] Fluticasone Propionate [Flonase] 2 sprays NS BID PRN 09/19/20 [History] Lutein 20 mg PO DAILY 09/19/20 [History] Magnesium 500 mg PO DAILY 09/19/20 [History] Meclizine [Antivert] 25 mg PO TID PRN 09/19/20 [History] Norethindrone 0.35 mg PO DAILY 09/19/20 [History] valACYclovir [Valtrex] 1,000 mg PO DAILY PRN 09/19/20 [History] Acetaminophen [Tylenol Extra Strength] 1,000 mg PO Q6H tablet 09/24/20 [Rx] Cyclobenzaprine [Flexeril] 10 mg PO Q8H PRN #30 tablet 09/24/20 [Rx] Ibuprofen [Motrin] 600 mg PO Q6H #40 tablet 09/24/20 [Rx] oxyCODONE 5 mg PO Q4H PRN #42 tablet 09/24/20 [Rx] Past Medical History HEENT History: Reports: Impaired Vision Gastrointestinal History: Reports: Other (See Below) Other Gastrointestinal History: diverticulitis Neurological History: Reports: Head Trauma Psychiatric History: Reports: ADHD - Infectious Disease History Infectious Disease History: Reports: Chicken Pox - Past Surgical History HEENT Surgical History: Reports: None GI Surgical History: Reports: Cholecystectomy Musculoskeletal Surgical History: Reports: Other (See Below) Other Musculoskeletal Surgeries/Procedures:: discectomy L4-5 2013 Social & Family History - Caffeine Use Caffeine Use: Reports: Coffee ED ROS GENERAL - Review of Systems Review Of Systems: See Below Constitutional: Reports: Malaise, Weakness, Other (increased abdomanal pain) HEENT: Reports: No Symptoms Respiratory: Reports: No Symptoms Cardiovascular: Reports: No Symptoms Endocrine: Reports: No Symptoms GI/Abdominal: Reports: Abdominal Pain, Other (lower abdomanal pain) : Reports: Pain Musculoskeletal: Reports: No Symptoms Skin: Reports: No Symptoms ED EXAM, GI/ABD - Physical Exam Exam: See Below Text/Narrative:: pt arrived with pain in lower abdoman. she has not had a bm since she was dischared from the hosp. She is not passing gas Pt did have some bloody discharge from the rctum earlier todya. Exam Limited By: No Limitations General Appearance: Alert, Anxious, Moderate Distress Ears: Normal TMs Nose: Normal Inspection Throat/Mouth: Normal Inspection Head: Atraumatic Neck: Normal Inspection Respiratory/Chest: No Respiratory Distress Cardiovascular: Regular Rate, Rhythm GI/Abdominal Exam: Other ( tender in the lower abdoman. ) (Female) Exam: Deferred Rectal (Female) Exam: Other (no hard stool present. ) Back Exam: Normal Inspection Extremities: Normal Inspection Neurological: Alert, Oriented, Normal Cognition Course - Vital Signs Last Recorded V/S: Last Vital Signs Temp 36.5 C 09/28/20 13:56 Pulse 77 09/28/20 13:56 Resp 14 09/28/20 13:56 BP 124/56 L 09/28/20 13:56 Pulse Ox 100 09/28/20 13:56 - Orders/Labs/Meds Orders: Active Orders 24 hr Category Date Time Status Abdomen Pelvis w Cont [CT] Stat Exams 09/28/20 13:23 Taken CULTURE WOUND + SMEAR [RM] Stat Lab 09/28/20 12:36 Results Meropenem [Merrem] 500 mg Med 09/28/20 14:17 Ordered Sodium Chloride 0.9% [Normal Saline] 50 ml IV ONETIME Sodium Chloride 0.9% [Normal Saline] 1,000 ml Med 09/28/20 12:45 Active IV ASDIRECTED Sodium Chloride 0.9% [Normal Saline] 85 ml Med 09/28/20 13:45 Active IV ASDIRECTED Medication Orders Sodium Chloride (Normal Saline) 1,000 mls @ 999 mls/hr IV ASDIRECTED ASHLEY Last Admin: 09/28/20 12:46 Dose: 999 mls/hr Documented by: JUANITA Sodium Chloride (Normal Saline) 85 mls @ 3.5 mls/sec IV ASDIRECTED ASHLEY Stop: 09/28/20 18:00 Last Admin: 09/28/20 13:49 Dose: 3.5 mls/sec Documented by: JASON Meropenem 500 mg/ Sodium (Chloride) 50 mls @ 100 mls/hr IV ONETIME ONE Stop: 09/28/20 14:46 Labs: Laboratory Tests 09/28/20 09/28/20 Range/Units 12:18 12:18 WBC 12.7 H (4.5-11.0) K/uL RBC 3.99 (3.30-5.50) M/uL Hgb 11.9 L D (12.0-15.0) g/dL Hct 37.0 (36.0-48.0) % MCV 93 (80-98) fL MCH 30 (27-31) pg MCHC 32 (32-36) % Plt Count 398 (150-400) K/uL Neut % (Auto) 71 H (36-66) % Lymph % (Auto) 16 L (24-44) % [place] % (Auto) 8 H (2-6) % Eos % (Auto) 4 (2-4) % Baso % (Auto) 0 (0-1) % Sodium 139 L (140-148) mmol/L Potassium 4.0 (3.6-5.2) mmol/L Chloride 102 (100-108) mmol/L Carbon Dioxide 26 (21-32) mmol/L Anion Gap 15.0 H (5.0-14.0) mmol/L BUN 11 (7-18) mg/dL Creatinine 0.9 (0.6-1.0) mg/dL Est Cr Clr Drug Dosing 89.85 mL/min Estimated GFR (MDRD) > 60 (>60) Glucose 87 (74-106) mg/dL Calcium 9.1 (8.5-10.1) mg/dL Total Bilirubin 0.4 (0.2-1.0) mg/dL AST 20 (15-37) U/L ALT 52 (12-78) U/L Alkaline Phosphatase 84 (46-116) U/L Total Protein 6.9 (6.4-8.2) g/dL Albumin 2.4 L (3.4-5.0) g/dL Globulin 4.5 H (2.3-3.5) g/dL Albumin/Globulin Ratio 0.5 L (1.2-2.2) Meds: Medications Generic Name Dose Route Start Last Admin Trade Name Freq PRN Reason Stop Dose Admin Sodium Chloride 1,000 mls @ 999 mls/hr 09/28/20 12:45 09/28/20 12:46 Normal Saline IV 999 mls/hr ASDIRECTED ASHLEY Administration Sodium Chloride 85 mls @ 3.5 mls/sec 09/28/20 13:45 09/28/20 13:49 Normal Saline IV 09/28/20 18:00 3.5 mls/sec ASDIRECTED ASHLEY Administration Meropenem 500 mg/ Sodium 50 mls @ 100 mls/hr 09/28/20 14:17 Chloride IV 09/28/20 14:46 ONETIME ONE Discontinued Medications Generic Name Dose Route Start Last Admin Trade Name Wilfrid PRN Reason Stop Dose Admin Hydromorphone HCl 0.5 mg 09/28/20 12:38 09/28/20 12:45 Hydromorphone 0.5 Mg/0.5 Ml Syringe IVPUSH 09/28/20 12:39 0.5 mg ONETIME ONE Administration Hydromorphone HCl 0.5 mg 09/28/20 13:59 09/28/20 14:05 Hydromorphone 0.5 Mg/0.5 Ml Syringe IVPUSH 09/28/20 14:00 0.5 mg ONETIME ONE Administration Iopamidol 150 ml 09/28/20 13:34 09/28/20 13:47 Iopamidol 612 Mg/Ml 500 Ml Multipack Bottle IV 09/28/20 13:35 150 ml ONETIME ONE Administration Ondansetron HCl 4 mg 09/28/20 12:38 09/28/20 12:45 Ondansetron 4 Mg/2 Ml Sdv IVPUSH 09/28/20 12:39 4 mg ONETIME ONE Administration Sodium Chloride 10 ml 09/28/20 13:34 09/28/20 13:48 Sodium Chloride 0.9% 10 Ml Syringe FLUSH 09/28/20 13:35 10 ml ONETIME ONE Administration - Re-Assessments/Exams Free Text/Narrative Re-Assessment/Exam: 09/28/20 14:03 pt has drainage from the lower abdomanal wound This appears serosangious. her chems look good. Her wbc is 12,000 09/28/20 14:20 cat scan of the abdoman shows some narrowing of the lumen near the resection, there is stranding. Dr Mendez was notified and he wanted merapenum started on the pt. Dr león will admit the pt. Departure - Departure Time of Disposition: 14:21 Disposition: Admitted As Inpatient 66 Condition: Fair Clinical Impression: Post op infection, Constipation - Discharge Information Referrals: PCP,None [Primary Care Provider] - Forms: ED Department Discharge Care Plan Goals: admit to Dr León. Sepsis Event Note (ED) - Focused Exam Vital Signs: Vital Signs Temp Pulse Resp BP Pulse Ox 09/28/20 13:56 36.5 C 77 14 124/56 L 100 09/28/20 12:24 36.5 C 85 17 117/68 100 09/28/20 12:05 36.5 C 85 17 117/68 100 - My Orders Last 24 Hours: My Active Orders 09/28/20 12:36 CULTURE WOUND + SMEAR [RM] Stat 09/28/20 12:45 Sodium Chloride 0.9% [Normal Saline] 1,000 ml IV ASDIRECTED 09/28/20 13:23 Abdomen Pelvis w Cont [CT] Stat 09/28/20 13:45 Sodium Chloride 0.9% [Normal Saline] 85 ml IV ASDIRECTED 09/28/20 14:17 Meropenem [Merrem] 500 mg Sodium Chloride 0.9% [Normal Saline] 50 ml IV ONETIME - Assessment/Plan Last 24 Hours: My Active Orders 09/28/20 12:36 CULTURE WOUND + SMEAR [RM] Stat 09/28/20 12:45 Sodium Chloride 0.9% [Normal Saline] 1,000 ml IV ASDIRECTED 09/28/20 13:23 Abdomen Pelvis w Cont [CT] Stat 09/28/20 13:45 Sodium Chloride 0.9% [Normal Saline] 85 ml IV ASDIRECTED 09/28/20 14:17 Meropenem [Merrem] 500 mg Sodium Chloride 0.9% [Normal Saline] 50 ml IV ONETIME
[2020-09-28] MEDS ORDERED: HYDROmorphone 0.5 MG/0.5 ML Syringe IVPUSH ONE ×2 (12:38→13:59)
[2020-09-28] MEDS ORDERED: Ondansetron 4 MG/2 ML SDV IVPUSH ONE (12:38)
[2020-09-28] MEDS ORDERED: Sodium Chloride 0.9% 1,000 ML IV SCH ×2 (12:45→14:30)
[2020-09-28] MEDS ORDERED: Sodium Chloride 0.9% 10 ML Syringe FLUSH ONE (13:34)
[2020-09-28] MEDS ORDERED: Iopamidol 612 MG/ML 500 ML Multipack Bottle IV ONE (13:34)
--- NOTE | 2020-09-28 13:53 | CR ---
Abdomen 2V AP Flat Upright CLINICAL HISTORY: Constipation FINDINGS: No free air is identified. The small intestinal configuration is nonacute. There is moderate retained stool throughout the colon. There are midline surgical skin clips. IMPRESSION: Recent abdominal surgery Moderate fecal retention Nonacute small intestinal gas pattern
[2020-09-28] MEDS ORDERED: Meropenem 500 MG in Sodium Chloride 0.9% 50 ML IV ONE ×2 (14:17→15:15)
--- NOTE | 2020-09-28 14:34 | CT ---
Abdomen Pelvis w Cont CLINICAL HISTORY: Postop sigmoid resection COMPARISON: 09/18/2020. TECHNIQUE: Transverse scans were obtained from the base of the lungs to the pubic symphysis following oral contrast and IV infusion of contrast.Auto dosage reduction and iterative reconstructiontechniques employed. FINDINGS: Patient has had recent partial sigmoid resection for diverticulitis and diverticular abscess. There is a persistent segment of narrowed sigmoid in the proximal third. There is an approximately 7 cm segment of narrowing just proximal to the to the anastomotic site. This may be spasm or some sigmoid wall thickening from inflammation and edema. There is a normal caliber colon proximal to this. There are fluid-filled loops of small bowel in a nonspecific pattern. No free air is seen. The lung bases are clear. The liver shows no mass. There is some mild intrahepatic biliary prominence.. The gallbladder has been removed. The spleen is mildly enlarged at 14 cm in length. The pancreas shows no mass or inflammatory change. The adrenal glands appear normal bilaterally . The kidneys show no mass, stones or hydronephrosis. The ureters have a normal course and caliber. The bladder is empty The aorta has some minimal atheromatous plaque without aneurysm. There is no suspicious retroperitoneal adenopathy. IMPRESSION: Recent previous partial resection of sigmoid colon for diverticulitis. There is some persistent narrowing of the proximal sigmoid which may represent some inflammation and/or spasm or both. There is a small amount of free fluid in the pelvis.
--- NOTE | 2020-09-28 15:01 | PCM.HP.2 ---
H&P History of Present Illness - General Date of Service: 09/28/20 Admit Problem/Dx: Admission Diagnosis/Problem Admission Diagnosis/Problem Abdominal pain Source of Information: Patient, Provider, RN Notes Reviewed History Limitations: Reports: No Limitations - History of Present Illness Initial Comments - Free Text/Narative: Ms. Carreon is a 40-year-old woman who was admitted through the emergency department with abdominal pain and inflammation noted on CT scan following partial sigmoid colon resection last week for diverticulitis. She experienced onset of documented diverticulitis in late August and failed medical management. She presented here last week and underwent surgery for resection of the sigmoid. She did well following surgery and was discharged to home on September 17. She felt well for a day or 2 at home but since then has developed progressive increase in abdominal pain in the left lower quadrant. She has not had a bowel movement since discharge. Because of increased symptoms she presented to the emergency department today for further evaluation. White blood cell count is modestly elevated and abdominal x-ray did show stool within the colon. CT scan of the abdomen pelvis shows colonic inflammation with associated fluid in the pelvis. She has not had recent nausea or vomiting and denies fever or chills. - Related Data Allergies/Adverse Reactions: Allergies Allergy/AdvReac Type Severity Reaction Status Date / Time No Known Allergies Allergy Verified 09/28/20 12:05 Home Medications: Home Meds Propranolol HCl 1 tab PO TID PRN 09/18/20 [History] Amphetamine/Dextroamphetamine [Adderall XR] 15 mg PO DAILY 09/19/20 [History] Cetirizine HCl [Zyrtec] 10 mg PO DAILY PRN 09/19/20 [History] Dextroamphetamine/Amphetamine [Adderall Xr 10 mg Capsule] 10 mg PO DAILY 09/19/20 [History] Fish Oil/[place]-3 Fatty Acids [Fish Oil 1,000 MG] 1 each PO DAILY 09/19/20 [History] Fluticasone Propionate [Flonase] 2 sprays NS BID PRN 09/19/20 [History] Lutein 20 mg PO DAILY 09/19/20 [History] Magnesium 500 mg PO DAILY 09/19/20 [History] Meclizine [Antivert] 25 mg PO TID PRN 09/19/20 [History] Norethindrone 0.35 mg PO DAILY 09/19/20 [History] valACYclovir [Valtrex] 1,000 mg PO DAILY PRN 09/19/20 [History] Acetaminophen [Tylenol Extra Strength] 1,000 mg PO Q6H tablet 09/24/20 [Rx] Cyclobenzaprine [Flexeril] 10 mg PO Q8H PRN #30 tablet 09/24/20 [Rx] Ibuprofen [Motrin] 600 mg PO Q6H #40 tablet 09/24/20 [Rx] oxyCODONE 5 mg PO Q4H PRN #42 tablet 09/24/20 [Rx] Past Medical History HEENT History: Reports: Impaired Vision Gastrointestinal History: Reports: Other (See Below) Other Gastrointestinal History: diverticulitis Neurological History: Reports: Head Trauma Psychiatric History: Reports: ADHD - Infectious Disease History Infectious Disease History: Reports: Chicken Pox - Past Surgical History HEENT Surgical History: Reports: None GI Surgical History: Reports: Cholecystectomy Musculoskeletal Surgical History: Reports: Other (See Below) Other Musculoskeletal Surgeries/Procedures:: discectomy L4-5 2013 Social & Family History - Tobacco Use Tobacco Use Status *Q: Current Every Day Tobacco User Years of Tobacco use: 20 Packs/Tins Daily: 0.5 - Caffeine Use Caffeine Use: Reports: Coffee - Recreational Drug Use Recreational Drug Use: No H&P Review of Systems - Review of Systems: Review Of Systems: See Below General: Reports: Malaise, Weakness. Denies: Fever, Chills HEENT: Reports: No Symptoms Pulmonary: Reports: No Symptoms Cardiovascular: Reports: No Symptoms Gastrointestinal: Reports: Abdominal Pain, Distension. Denies: Diarrhea, Difficulty Swallowing, Hematochezia, Melena, Nausea, Vomiting Genitourinary: Reports: No Symptoms Musculoskeletal: Reports: No Symptoms Skin: Reports: No Symptoms Psychiatric: Reports: No Symptoms Neurological: Reports: No Symptoms Hematologic/Lymphatic: Reports: No Symptoms Immunologic: Reports: No Symptoms Exam - Exam Exam: See Below - Vital Signs Vital Signs: Last Vital Signs Temp 97.7 F 09/28/20 13:56 Pulse 77 09/28/20 13:56 Resp 14 09/28/20 13:56 BP 124/56 L 09/28/20 13:56 Pulse Ox 100 09/28/20 13:56 Weight: 223 lb 1.725 oz - Exam General: Alert, Oriented, Cooperative, Moderate Distress HEENT: Conjunctiva Clear, Hearing Intact, Mucosa Moist & [place], Normal Nasal Septum, Posterior Pharynx Clear, Pupils Equal Neck: Supple, Trachea Midline, +2 Carotid Pulse wo Bruit Lungs: Clear to Auscultation, Normal Respiratory Effort Cardiovascular: Regular Rate, Regular Rhythm, Normal S1, Normal S2. No: Systolic Murmur, Diastolic Murmur GI/Abdominal Exam: Soft, No Organomegaly, Distended, Guarding, Tender. No: Rigid, Rebound Extremities: Non-Tender, No Pedal Edema Skin: Warm, Dry Neurological: Cranial Nerves Intact, Strength Equal Bilateral, Normal Speech, Normal Tone, Sensation Intact. No: Focal Deficit Neuro Extensive - Mental Status: Alert, Oriented x3, Normal Mood/Affect, Normal Cognition, Memory Intact - Patient Data Lab Results Last 24 hrs: Laboratory Results - last 24 hr 09/28/20 09/28/20 Range/Units 12:18 12:18 WBC 12.7 H (4.5-11.0) K/uL RBC 3.99 (3.30-5.50) M/uL Hgb 11.9 L D (12.0-15.0) g/dL Hct 37.0 (36.0-48.0) % MCV 93 (80-98) fL MCH 30 (27-31) pg MCHC 32 (32-36) % Plt Count 398 (150-400) K/uL Neut % (Auto) 71 H (36-66) % Lymph % (Auto) 16 L (24-44) % [place] % (Auto) 8 H (2-6) % Eos % (Auto) 4 (2-4) % Baso % (Auto) 0 (0-1) % Sodium 139 L (140-148) mmol/L Potassium 4.0 (3.6-5.2) mmol/L Chloride 102 (100-108) mmol/L Carbon Dioxide 26 (21-32) mmol/L Anion Gap 15.0 H (5.0-14.0) mmol/L BUN 11 (7-18) mg/dL Creatinine 0.9 (0.6-1.0) mg/dL Est Cr Clr Drug Dosing 89.85 mL/min Estimated GFR (MDRD) > 60 (>60) Glucose 87 (74-106) mg/dL Calcium 9.1 (8.5-10.1) mg/dL Total Bilirubin 0.4 (0.2-1.0) mg/dL AST 20 (15-37) U/L ALT 52 (12-78) U/L Alkaline Phosphatase 84 (46-116) U/L Total Protein 6.9 (6.4-8.2) g/dL Albumin 2.4 L (3.4-5.0) g/dL Globulin 4.5 H (2.3-3.5) g/dL Albumin/Globulin Ratio 0.5 L (1.2-2.2) Result Diagrams: 09/28/20 12:18 09/28/20 12:18 [place] Results Last 24 hrs: Microbiology 09/28/20 12:36 Gram Stain - Final Abdomen - Drainage Sepsis Event Note - Evaluation Sepsis Screening Result: No Definite Risk - Focused Exam Vital Signs: Vital Signs Temp Pulse Resp BP Pulse Ox 09/28/20 13:56 97.7 F 77 14 124/56 L 100 09/28/20 12:24 97.7 F 85 17 117/68 100 09/28/20 12:05 97.7 F 85 17 117/68 100 *Q Meaningful Use (ADM) - VTE Risk Assess *Q Each Risk Factor Represents 1 Point: Obesity ( BMI > 25 kg/m2) Total Score 1 Point Risk Factors: 1 Each Risk Factor Represents 2 Points: None Total Score 2 Point Risk Factors: 0 Each Risk Factor Represents 3 Points: None Total Score 3 Point Risk Factors: 0 Each Risk Factor Represents 5 Points: None Total Score 5 Point Risk Factors: 0 Venous Thromboembolism Risk Factor Score *Q: 1 Problem List Initiated/Reviewed/Updated: Yes Orders Last 24hrs: Active Orders 24 hr Category Date Time Status Patient Status Manage Transfer [TRANSFER] Routine ADT 09/28/20 14:52 Ordered CULTURE WOUND + SMEAR [RM] Stat Lab 09/28/20 12:36 Results Sodium Chloride 0.9% [Normal Saline] 1,000 ml Med 09/28/20 12:45 Active IV ASDIRECTED Sodium Chloride 0.9% [Normal Saline] 1,000 ml Med 09/28/20 14:30 Active IV ASDIRECTED Sodium Chloride 0.9% [Normal Saline] 85 ml Med 09/28/20 13:45 Active IV ASDIRECTED Resuscitation Status Routine Resus Stat 09/28/20 14:55 Ordered Medication Orders Sodium Chloride (Normal Saline) 1,000 mls @ 999 mls/hr IV ASDIRECTED [facility] Last Admin: 09/28/20 12:46 Dose: 999 mls/hr Documented by: JUANITA Sodium Chloride (Normal Saline) 85 mls @ 3.5 mls/sec IV ASDIRECTED [facility] Stop: 09/28/20 18:00 Last Admin: 09/28/20 13:49 Dose: 3.5 mls/sec Documented by: JASON Sodium Chloride (Normal Saline) 1,000 mls @ 300 mls/hr IV ASDIRECTED [facility] Last Admin: 09/28/20 15:01 Dose: 300 mls/hr Documented by: JUANITA Meropenem 500 mg/ Sodium (Chloride) 50 mls @ 100 mls/hr IV ONETIME ONE Stop: 09/28/20 15:44 Assessment/Plan Comment:: ASSESSMENT AND PLAN ABDOMINAL PAIN-increase in left lower quadrant pain following surgery last week for diverticulitis. Pain has become significantly worse over the past few days and she is not had a bowel movement since discharge. CT scan does show evidence of inflammation/infection, white blood cell count mildly elevated. -Unasyn 1.5 g IV every 6 hours -Clear liquid diet -IV fluids for hydration -Pain medication and nausea medication as needed -Consult Dr. Mendez to see and assume care in a.m. -MiraLAX and Dulcolax suppository now MAINTENANCE ISSUES -DVT prophylaxis; SCUDs -GI prophylaxis; not indicated -Verduzco catheter; not indicated -Nutrition; clear liquid diet -Nicotine dependence; nicotine patch and nicotine gum CODE STATUS-FULL CODE ADMISSION STATUS-patient will be admitted to inpatient status, expect at least a 2 night hospital stay for evaluation and management of problems as outlined above. At the time of this admission I do not reasonably expected evaluation and management of this problem will require more than a 96 hour hospital stay. DISPOSITION-anticipate discharge to home after the hospital stay. - Mortality Measure Prognosis:: Good
[2020-09-28] MEDS ORDERED: Sodium Chloride 0.9% 10 ML Syringe FLUSH PRN (16:22)
[2020-09-28] MEDS ORDERED: Nicotine Polacrilex 2 MG Gum CHEW PRN (16:22)
[2020-09-28] MEDS ORDERED: Cetirizine 10 MG Tab PO PRN (16:28)
[2020-09-28] MEDS ORDERED: Bisacodyl 10 MG Supp RECTAL ONE (17:00)
[2020-09-28] MEDS ORDERED: Polyethylene Glycol 3350 Powder 17 GM Packet PO SCH (17:00)
[2020-09-28] MEDS: HYDROmorphone 0.5 MG/0.5 ML Syringe IVPUSH PRN ×2 (17:19→20:32)
[2020-09-28] MEDS: Ampicillin/Sulbactam Na 1.5 GM in Sodium Chloride 0.9% 50 ML IV SCH ×2 (17:22→21:01)
[2020-09-28] MEDS: Nicotine 7 MG/24 Hr Patch TRDERM SCH (17:24)
[2020-09-28] MEDS: Lactobacillus Rhamnosus GG (Probiotic) Cap PO SCH ×2 (17:24→20:46)
[2020-09-28] MEDS: Cyclobenzaprine 10 MG Tab PO PRN (18:35)
[2020-09-28] MEDS: oxyCODONE 5 MG Tab PO PRN (19:26)
[2020-09-28] MEDS: Sodium Chloride 0.9% 1,000 ML IV SCH (23:43)
[2020-09-29] MEDS: HYDROmorphone 0.5 MG/0.5 ML Syringe IVPUSH PRN ×3 (01:36→06:42)
[2020-09-29] MEDS: Ampicillin/Sulbactam Na 1.5 GM in Sodium Chloride 0.9% 50 ML IV SCH ×4 (04:00→21:51)
[2020-09-29] MEDS ORDERED: HYDROmorphone/Normal Saline 15 MG/30 ML PCA IV PRN (07:05)
[2020-09-29] MEDS ORDERED: Bupivacaine 0.5% 50 ML MDV ONE (07:51)
[2020-09-29] MEDS ORDERED: Lidocaine 1% with EPINEPHrine 1:100,000 50 ML MDV ONE (07:51)
[2020-09-29] MEDS ORDERED: Meropenem 500 MG SDV ONE (07:51)
[2020-09-29] MEDS ORDERED: Midazolam 1 MG/ML 2 ML SDV ONE (07:58)
[2020-09-29] MEDS ORDERED: Propofol 200 MG/20 ML SDV ONE ×2 (07:58→08:32)
[2020-09-29] MEDS ORDERED: fentaNYL 100 MCG/2 ML SDV ONE (07:58)
[2020-09-29] MEDS ORDERED: Naloxone 0.4 MG/ML SDV IV PRN (08:00)
--- NOTE | 2020-09-29 08:24 | PCM.SURGPN ---
- General Info POD#: 0 Functional Status: Reports: Pain Controlled - Review of Systems General: Reports: No Symptoms HEENT: Reports: No Symptoms Pulmonary: Reports: No Symptoms Cardiovascular: Reports: No Symptoms Gastrointestinal: Reports: Abdominal Pain (in the lower part of her incision. There is serous drainage. ), Constipation, Decreased Appetite (no BM since Sunday09/24/2020 day of discharge. ) Genitourinary: Reports: No Symptoms Musculoskeletal: Reports: No Symptoms Skin: Reports: No Symptoms Neurological: Reports: No Symptoms Psychiatric: Reports: No Symptoms - Patient Data Vitals - Most Recent: Last Vital Signs Temp 97.1 F 09/29/20 07:00 Pulse 73 09/29/20 07:00 Resp 16 09/29/20 07:00 BP 107/62 09/29/20 07:00 Pulse Ox 98 09/29/20 07:00 Weight - Most Recent: 225 lb 6.4 oz I&O - Last 24 Hours: Intake & Output 09/28/20 09/29/20 09/29/20 22:59 06:59 14:59 Intake Total 1035 1367 Output Total 600 1900 Balance 435 -533 Lab Results Last 24 Hrs: Laboratory Results - last 24 hr 09/28/20 09/28/20 09/29/20 Range/Units 12:18 12:18 05:48 WBC 12.7 H 13.9 H (4.5-11.0) K/uL RBC 3.99 3.63 (3.30-5.50) M/uL Hgb 11.9 L D 10.7 L (12.0-15.0) g/dL Hct 37.0 34.0 L (36.0-48.0) % MCV 93 94 (80-98) fL MCH 30 30 (27-31) pg MCHC 32 32 (32-36) % Plt Count 398 363 (150-400) K/uL Neut % (Auto) 71 H 71 H (36-66) % Lymph % (Auto) 16 L 16 L (24-44) % Rains % (Auto) 8 H 9 H (2-6) % Eos % (Auto) 4 4 (2-4) % Baso % (Auto) 0 0 (0-1) % Sodium 139 L (140-148) mmol/L Potassium 4.0 (3.6-5.2) mmol/L Chloride 102 (100-108) mmol/L Carbon Dioxide 26 (21-32) mmol/L Anion Gap 15.0 H (5.0-14.0) mmol/L BUN 11 (7-18) mg/dL Creatinine 0.9 (0.6-1.0) mg/dL Est Cr Clr Drug Dosing 89.85 mL/min Estimated GFR (MDRD) > 60 (>60) Glucose 87 (74-106) mg/dL Calcium 9.1 (8.5-10.1) mg/dL Total Bilirubin 0.4 (0.2-1.0) mg/dL AST 20 (15-37) U/L ALT 52 (12-78) U/L Alkaline Phosphatase 84 (46-116) U/L Total Protein 6.9 (6.4-8.2) g/dL Albumin 2.4 L (3.4-5.0) g/dL Globulin 4.5 H (2.3-3.5) g/dL Albumin/Globulin Ratio 0.5 L (1.2-2.2) 09/29/20 Range/Units 05:48 WBC (4.5-11.0) K/uL RBC (3.30-5.50) M/uL Hgb (12.0-15.0) g/dL Hct (36.0-48.0) % MCV (80-98) fL MCH (27-31) pg MCHC (32-36) % Plt Count (150-400) K/uL Neut % (Auto) (36-66) % Lymph % (Auto) (24-44) % Rains % (Auto) (2-6) % Eos % (Auto) (2-4) % Baso % (Auto) (0-1) % Sodium 141 (140-148) mmol/L Potassium 4.2 (3.6-5.2) mmol/L Chloride 103 (100-108) mmol/L Carbon Dioxide 26 (21-32) mmol/L Anion Gap 12.5 (5.0-14.0) mmol/L BUN 5 L D (7-18) mg/dL Creatinine 0.8 (0.6-1.0) mg/dL Est Cr Clr Drug Dosing 101.08 mL/min Estimated GFR (MDRD) > 60 (>60) Glucose 88 (74-106) mg/dL Calcium 8.8 (8.5-10.1) mg/dL Total Bilirubin 0.3 (0.2-1.0) mg/dL AST 23 (15-37) U/L ALT 51 (12-78) U/L Alkaline Phosphatase 70 (46-116) U/L Total Protein 6.1 L (6.4-8.2) g/dL Albumin 2.2 L (3.4-5.0) g/dL Globulin 3.9 H (2.3-3.5) g/dL Albumin/Globulin Ratio 0.6 L (1.2-2.2) River Results Last 24 Hrs: Microbiology 09/28/20 12:36 Gram Stain - Final Abdomen - Drainage Med Orders - Current: Current Medications Acetaminophen (Acetaminophen 325 Mg Tab) 650 mg PO Q4H PRN PRN Reason: Pain (Mild 1-3)/fever Amphetamine/Dextroamphetamine (Amphetamine/Dextroamphetamine Salts 10 Mg Cap.Er) 20 mg PO DAILY [facility] Amphetamine/Dextroamphetamine (Amphetamine/Dextroamphetamine Salts 10 Mg Tab) 5 mg PO DAILY [facility] Bisacodyl (Bisacodyl 5 Mg Tab) 10 mg PO BID [facility] Cetirizine HCl (Cetirizine 10 Mg Tab) 10 mg PO DAILY PRN PRN Reason: allergies Cyclobenzaprine HCl (Cyclobenzaprine 10 Mg Tab) 10 mg PO Q8H PRN PRN Reason: MUSCLE SPASM Last Admin: 09/28/20 18:35 Dose: 10 mg Documented by: Docusate Sodium (Docusate Sodium 100 Mg Cap) 100 mg PO BID [facility] Hydromorphone HCl (Hydromorphone/Normal Saline 15 Mg/30 Ml Imaging Technician) 0 mg IV ASDIRECTED PRN; Protocol PRN Reason: ADJUSTMENT CLERK PAIN CONTROL Ampicillin Sodium/Sulbactam (Sodium 1.5 gm/ Sodium Chloride) 50 mls @ 100 mls/hr IV Q6H [facility] Last Admin: 09/29/20 04:00 Dose: 100 mls/hr Documented by: Sodium Chloride (Normal Saline) 1,000 mls @ 125 mls/hr IV ASDIRECTED [facility] Last Admin: 09/28/20 23:43 Dose: 125 mls/hr Documented by: Lactobacillus Rhamnosus (Lactobacillus Rhamnosus Gg (Probiotic) Cap) 1 cap PO BID [facility] Last Admin: 09/28/20 20:46 Dose: 1 cap Documented by: Magnesium Oxide (Magnesium Oxide 400 Mg Tab) 400 mg PO DAILY@1200 [facility] Naloxone HCl (Naloxone 0.4 Mg/Ml Sdv) 0.1 mg IV ASDIRECTED PRN PRN Reason: decreased respiratory rate Nicotine (Nicotine 7 Mg/24 Hr Patch) 7 mg TRDERM DAILY [facility] Last Admin: 09/28/20 17:24 Dose: Not Given Documented by: Nicotine Polacrilex (Nicotine Polacrilex 2 Mg Gum) 2 mg CHEW Q1H PRN PRN Reason: Other (Norethindrone [ Norethindrone] 0.35 Mg Tablet)*Pom* 0 mg PO DAILY [facility] Ondansetron HCl (Ondansetron 4 Mg/2 Ml Sdv) 4 mg IV Q4H PRN PRN Reason: Nausea/Vomiting Oxycodone HCl (Oxycodone 5 Mg Tab) 5 mg PO Q4H PRN PRN Reason: Pain Last Admin: 09/28/20 19:26 Dose: 5 mg Documented by: Sodium Chloride (Sodium Chloride 0.9% 10 Ml Syringe) 10 ml FLUSH ASDIRECTED PRN PRN Reason: Keep Vein Open Discontinued Medications Bisacodyl (Bisacodyl 10 Mg Supp) 10 mg RECTAL ONETIME ONE Stop: 09/28/20 17:01 Last Admin: 09/28/20 20:45 Dose: Not Given Documented by: Bupivacaine HCl (Bupivacaine 0.5% 50 Ml Mdv) Confirm Administered Dose 50 ml .ROUTE .STK-MED ONE Stop: 09/29/20 07:52 Fentanyl (Fentanyl 100 Mcg/2 Ml Sdv) Confirm Administered Dose 100 mcg .ROUTE .STK-MED ONE Stop: 09/29/20 07:59 Hydromorphone HCl (Hydromorphone 0.5 Mg/0.5 Ml Syringe) 0.5 mg IVPUSH ONETIME ONE Stop: 09/28/20 12:39 Last Admin: 09/28/20 12:45 Dose: 0.5 mg Documented by: Hydromorphone HCl (Hydromorphone 0.5 Mg/0.5 Ml Syringe) 0.5 mg IVPUSH ONETIME ONE Stop: 09/28/20 14:00 Last Admin: 09/28/20 14:05 Dose: 0.5 mg Documented by: Hydromorphone HCl (Hydromorphone 0.5 Mg/0.5 Ml Syringe) 0.5 mg IVPUSH Q2H PRN PRN Reason: Pain (severe 7-10) Last Admin: 09/29/20 06:42 Dose: 0.5 mg Documented by: Sodium Chloride (Normal Saline) 1,000 mls @ 999 mls/hr IV ASDIRECTED [facility] Last Admin: 09/28/20 12:46 Dose: 999 mls/hr Documented by: Sodium Chloride (Normal Saline) 85 mls @ 3.5 mls/sec IV ASDIRECTED [facility] Stop: 09/28/20 18:00 Last Admin: 09/28/20 13:49 Dose: 3.5 mls/sec Documented by: Sodium Chloride (Normal Saline) 1,000 mls @ 300 mls/hr IV ASDIRECTED [facility] Last Admin: 09/28/20 15:01 Dose: 300 mls/hr Documented by: Meropenem 500 mg/ Sodium (Chloride) 50 mls @ 100 mls/hr IV ONETIME ONE Stop: 09/28/20 15:44 Last Admin: 09/28/20 15:20 Dose: 100 mls/hr Documented by: Linezolid (Zyvox) Confirm Administered Dose 300 mls @ as directed .ROUTE .STK- MED ONE Stop: 09/29/20 07:52 Iopamidol (Iopamidol 612 Mg/Ml 500 Ml Multipack Bottle) 150 ml IV ONETIME ONE Stop: 09/28/20 13:35 Last Admin: 09/28/20 13:47 Dose: 150 ml Documented by: Lidocaine/Epinephrine (Lidocaine 1% With Epinephrine 1:100,000 50 Ml Mdv) Confirm Administered Dose 50 ml .ROUTE .STK-MED ONE Stop: 09/29/20 07:52 Meropenem (Meropenem 500 Mg Sdv) Confirm Administered Dose 500 mg .ROUTE .STK- MED ONE Stop: 09/29/20 07:52 Midazolam HCl (Midazolam 1 Mg/Ml 2 Ml Sdv) Confirm Administered Dose 2 mg .ROUTE .STK-MED ONE Stop: 09/29/20 07:59 Ondansetron HCl (Ondansetron 4 Mg/2 Ml Sdv) 4 mg IVPUSH ONETIME ONE Stop: 09/28/20 12:39 Last Admin: 09/28/20 12:45 Dose: 4 mg Documented by: Polyethylene Glycol (Polyethylene Glycol 3350 Powder 17 Gm Packet) 17 gm PO DAILY [facility] Stop: 09/28/20 17:01 Last Admin: 09/28/20 17:19 Dose: 17 gm Documented by: Propofol (Propofol 200 Mg/20 Ml Sdv) Confirm Administered Dose 200 mg .ROUTE .STK-MED ONE Stop: 09/29/20 07:59 Sodium Chloride (Sodium Chloride 0.9% 10 Ml Syringe) 10 ml FLUSH ONETIME ONE Stop: 09/28/20 13:35 Last Admin: 09/28/20 13:48 Dose: 10 ml Documented by: - Exam Wound/Incisions: Drainage (bottom part of the incision. drainage is pink and clear ) Quality Assessment: DVT Prophylaxis General: Alert, Oriented, Cooperative HEENT: Pupils Equal, Pupils Reactive Neck: Supple Lungs: Clear to Auscultation, Normal Respiratory Effort Cardiovascular: Regular Rate, Regular Rhythm GI/Abdominal Exam: Tender (in incision ) Extremities: Normal Inspection, Normal Range of Motion Skin: Warm, Dry, Intact Neurological: Normal Speech, Cranial Nerves Intact Psy/Mental Status: Alert, Normal Affect, Normal Mood Sepsis Event Note - Evaluation Sepsis Screening Result: No Definite Risk - Focused Exam Vital Signs: Vital Signs Temp Pulse Resp BP Pulse Ox 09/29/20 07:00 97.1 F 73 16 107/62 98 09/29/20 03:00 96.7 F L 75 16 115/54 L 98 09/28/20 22:37 98.8 F 79 15 118/56 L 98 - Problem List & Annotations (1) Open wound anterior abdominal wall SNOMED Code(s): 383694324 Code(s): S31.109A - UNSP OPN WND ABD WALL, UNSP Q W/O PENET PERIT CAV, INIT Status: Acute Current Visit: Yes (2) Open wound of abdomen SNOMED Code(s): 388211595 Code(s): S31.109A - UNSP OPN WND ABD WALL, UNSP Q W/O PENET PERIT CAV, INIT Status: Acute Current Visit: Yes Qualifiers: Encounter type: initial encounter Qualified Code(s): S31.109A - Unspecified open wound of abdominal wall, unspecified quadrant without penetration into peritoneal cavity, initial encounter - Problem List Review Problem List Initiated/Reviewed/Updated: Yes - My Orders Last 24 Hours: Active Orders 24 hr Category Date Time Status Patient Status [ADT] Routine ADT 09/28/20 16:22 Active Ambulate [RC] QID Care 09/28/20 16:22 Active Antiembolic Devices [RC] .Routine Care 09/28/20 16:22 Active Height and Weight [RC] 0500 Care 09/28/20 16:22 Active Intake and Output [RC] QSHIFT Care 09/28/20 16:22 Active May Shower [RC] ASDIRECTED Care 09/29/20 06:54 Active Notify Provider Consults [RC] ASDIRECTED Care 09/28/20 16:22 Active Notify Provider Vital Signs [RC] ASDIRECTED Care 09/28/20 16:22 Active Oxygen Therapy [RC] PRN Care 09/28/20 16:22 Active Peripheral IV Care [RC] Q12H Care 09/28/20 16:22 Active Up With Assistance [RC] ASDIRECTED Care 09/28/20 16:22 Active Up to Chair [RC] QID Care 09/28/20 16:22 Active Verify Patient Consent Obtain [RC] ASDIRECTED Care 09/29/20 06:52 Active Vital Signs [RC] Q4H Care 09/28/20 16:22 Active Consult to Physician [CONS] Routine Cons 09/28/20 16:22 Ordered NPO Now [Nothing per Oral Now Diet] [DIET] Diet 09/29/20 Breakfast Active CORONAVIRUS COVID-19 TWIN [MOLEC] Stat Lab 09/29/20 07:47 Ordered CULTURE WOUND + SMEAR [RM] Stat Lab 09/28/20 12:36 Results Acetaminophen [TylenoL] Med 09/28/20 16:22 Active 650 mg PO Q4H PRN Amphetamine/Dextroamphetamine [Adderall XR] Med 09/29/20 09:00 Active 20 mg PO DAILY Amphetamine/Dextroamphetamine [Adderall] Med 09/29/20 09:00 Active 5 mg PO DAILY Ampicillin/Sulbactam Na [Unasyn] 1.5 gm Med 09/28/20 16:00 Active Sodium Chloride 0.9% [Normal Saline] 50 ml IV Q6H Cetirizine [ZyrTEC] Med 09/28/20 16:28 Active 10 mg PO DAILY PRN Cyclobenzaprine [Flexeril] Med 09/28/20 16:22 Active 10 mg PO Q8H PRN Docusate Sodium [Colace] Med 09/29/20 21:00 Active 100 mg PO BID HYDROmorphone/Normal Saline [Dilaudid ADJUSTMENT CLERK 15 MG in NS Med 09/29/20 07:05 Active 30 ML] 0 mg IV ASDIRECTED PRN Lactobacillus Rhamnosus GG [Culturelle] Med 09/28/20 17:00 Active 1 cap PO BID Magnesium Oxide Med 09/29/20 12:00 Active 400 mg PO DAILY@1200 Naloxone [Narcan] Med 09/29/20 08:00 Active 0.1 mg IV ASDIRECTED PRN Nicotine Polacrilex [Nicorelief] Med 09/28/20 16:22 Active 2 mg CHEW Q1H PRN Nicotine [Habitrol] Med 09/28/20 17:00 Active 7 mg TRDERM DAILY Norethindrone [Norethindrone] Med 09/29/20 09:00 Active 0 mg PO DAILY Ondansetron [Zofran] Med 09/28/20 16:22 Active 4 mg IV Q4H PRN Sodium Chloride 0.9% [Normal Saline] 1,000 ml Med 09/28/20 16:22 Active IV ASDIRECTED Sodium Chloride 0.9% [Saline Flush] Med 09/28/20 16:22 Active 10 ml FLUSH ASDIRECTED PRN bisacodyL [Dulcolax] Med 09/29/20 21:00 Active 10 mg PO BID oxyCODONE Med 09/28/20 16:22 Active 5 mg PO Q4H PRN Peripheral IV Insertion Adult [OM.PC] Routine Oth 09/28/20 16:22 Ordered Sequential Compression Device [OM.PC] Per Unit Routine Oth 09/28/20 16:22 Ordered Resuscitation Status Routine Resus Stat 09/28/20 14:55 Ordered Medication Orders Acetaminophen (Acetaminophen 325 Mg Tab) 650 mg PO Q4H PRN PRN Reason: Pain (Mild 1-3)/fever Amphetamine/Dextroamphetamine (Amphetamine/Dextroamphetamine Salts 10 Mg Cap.Er) 20 mg PO DAILY [facility] Amphetamine/Dextroamphetamine (Amphetamine/Dextroamphetamine Salts 10 Mg Tab) 5 mg PO DAILY [facility] Bisacodyl (Bisacodyl 5 Mg Tab) 10 mg PO BID [facility] Cetirizine HCl (Cetirizine 10 Mg Tab) 10 mg PO DAILY PRN PRN Reason: allergies Cyclobenzaprine HCl (Cyclobenzaprine 10 Mg Tab) 10 mg PO Q8H PRN PRN Reason: MUSCLE SPASM Last Admin: 09/28/20 18:35 Dose: 10 mg Documented by: SWANRHMichelle Docusate Sodium (Docusate Sodium 100 Mg Cap) 100 mg PO BID [facility] Hydromorphone HCl (Hydromorphone/Normal Saline 15 Mg/30 Ml Imaging Technician) 0 mg IV ASDIRECTED PRN; Protocol PRN Reason: ADJUSTMENT CLERK PAIN CONTROL Ampicillin Sodium/Sulbactam (Sodium 1.5 gm/ Sodium Chloride) 50 mls @ 100 mls/hr IV Q6H [facility] Last Admin: 09/29/20 04:00 Dose: 100 mls/hr Documented by: Admin: 09/28/20 21:01 Dose: 100 mls/hr Documented by: Admin: 09/28/20 17:22 Dose: 100 mls/hr Documented by: KEN Sodium Chloride (Normal Saline) 1,000 mls @ 125 mls/hr IV ASDIRECTED [facility] Last Admin: 09/28/20 23:43 Dose: 125 mls/hr Documented by: MISSY Lactobacillus Rhamnosus (Lactobacillus Rhamnosus Gg (Probiotic) Cap) 1 cap PO BID [facility] Last Admin: 09/28/20 20:46 Dose: 1 cap Documented by: Admin: 09/28/20 17:24 Dose: 1 cap Documented by: KEN Magnesium Oxide (Magnesium Oxide 400 Mg Tab) 400 mg PO DAILY@1200 [facility] Naloxone HCl (Naloxone 0.4 Mg/Ml Sdv) 0.1 mg IV ASDIRECTED PRN PRN Reason: decreased respiratory rate Nicotine (Nicotine 7 Mg/24 Hr Patch) 7 mg TRDERM DAILY [facility] Last Admin: 09/28/20 17:24 Dose: Not Given Documented by: KEN Nicotine Polacrilex (Nicotine Polacrilex 2 Mg Gum) 2 mg CHEW Q1H PRN PRN Reason: Other (Norethindrone [ Norethindrone] 0.35 Mg Tablet)*Pom* 0 mg PO DAILY [facility] Ondansetron HCl (Ondansetron 4 Mg/2 Ml Sdv) 4 mg IV Q4H PRN PRN Reason: Nausea/Vomiting Oxycodone HCl (Oxycodone 5 Mg Tab) 5 mg PO Q4H PRN PRN Reason: Pain Last Admin: 09/28/20 19:26 Dose: 5 mg Documented by: MISSY Sodium Chloride (Sodium Chloride 0.9% 10 Ml Syringe) 10 ml FLUSH ASDIRECTED PRN PRN Reason: Keep Vein Open Assessment: Open Draining Abdominal Incision SP Right Colectomy Plan: Schedule and have consent signed for Incision and Drainage of Abdominal Incision IV/Local Sedation Case to Follow today, 09/29/2020 NPO - Troy Mendez MD Rx Colace 100 mg po bid start at 2100 Rx Ducolax 10 mg po bid start at 2100 Rx Diaudid ADJUSTMENT CLERK May Shower Will evaluate prn or in AM Gina Mcgowan 09/29/2020
[2020-09-29] MEDS ORDERED: Magnesium Hydroxide 400 MG/5 ML Susp 30 ML Cup PO PRN (09:44)
[2020-09-29] MEDS ORDERED: Magnesium Hydroxide 400 MG/5 ML Susp 30 ML Cup PO ONE (09:45)
[2020-09-29] MEDS: Nicotine 7 MG/24 Hr Patch TRDERM SCH (11:07)
[2020-09-29] MEDS: Lactobacillus Rhamnosus GG (Probiotic) Cap PO SCH ×2 (11:21→20:28)
[2020-09-29] MEDS: Magnesium Oxide 400 MG Tab PO SCH (11:26)
[2020-09-29] MEDS: Amphetamine/Dextroamphetamine Salts 10 MG Cap.ER PO SCH (11:34)
[2020-09-29] MEDS: Amphetamine/Dextroamphetamine Salts 10 MG Tab PO SCH (11:34)
[2020-09-29] MEDS: Sodium Chloride 0.9% 1,000 ML IV SCH (13:14)
[2020-09-29] MEDS ORDERED: Albuterol 0.083% 2.5 MG/3 ML Neb Soln NEB PRN (14:41)
[2020-09-29] MEDS: Fluconazole 100 MG Tab PO SCH (15:33)
[2020-09-29] MEDS: Cyclobenzaprine 10 MG Tab PO PRN (18:31)
[2020-09-29] MEDS: Docusate Sodium 100 MG Cap PO SCH (20:28)
[2020-09-29] MEDS: Bisacodyl 5 MG Tab PO SCH (20:28)
[2020-09-30] MEDS: oxyCODONE 5 MG Tab PO PRN ×6 (00:32→21:03)
[2020-09-30] MEDS: Cyclobenzaprine 10 MG Tab PO PRN ×2 (00:32→08:35)
[2020-09-30] MEDS: Ondansetron 4 MG/2 ML SDV IV PRN ×2 (00:38→20:42)
[2020-09-30] MEDS: Ampicillin/Sulbactam Na 1.5 GM in Sodium Chloride 0.9% 50 ML IV SCH ×4 (04:24→22:26)
[2020-09-30] MEDS: Sodium Chloride 0.9% 1,000 ML IV SCH (04:25)
[2020-09-30] MEDS: Docusate Sodium 100 MG Cap PO SCH ×2 (08:34→21:06)
[2020-09-30] MEDS: Amphetamine/Dextroamphetamine Salts 10 MG Cap.ER PO SCH (08:34)
[2020-09-30] MEDS: Lactobacillus Rhamnosus GG (Probiotic) Cap PO SCH ×2 (08:35→22:26)
[2020-09-30] MEDS: Bisacodyl 5 MG Tab PO SCH ×2 (08:35→21:06)
[2020-09-30] MEDS: Amphetamine/Dextroamphetamine Salts 10 MG Tab PO SCH (08:38)
[2020-09-30] MEDS: Nicotine 7 MG/24 Hr Patch TRDERM SCH (09:48)
--- NOTE | 2020-09-30 09:56 | PN ---
DATE OF SERVICE: 09/30/2020 SUBJECTIVE: Kyra had her incision opened yesterday and drained in OR. She still has not had a bowel movement. Reports her pain on a pain scale of 1 to 10 a persistent 6 to 8. Vital signs have been stable. She has been afebrile. Oral intake 1120. Urine output 3050. OBJECTIVE: GENERAL: Kyra Carreon is a pleasant 40-year-old female, alert and orientated. VITAL SIGNS: TPR is 97.4, 83, 16, blood pressure 108/48. HEENT: Negative. NECK: Supple. HEART: Regular rate and rhythm. LUNGS: Clear. ABDOMEN: Dressings dry and intact. Abdominal binder is on. EXTREMITIES: Without peripheral edema. ASSESSMENT: Wound incision and drainage, IV sedation, Troy Mendez MD. Date of procedure: 09/29/2020. PLAN: 1. Discontinue UNDERWRITING CONSULTANT. 2. Oxycodone 5 mg every 4 hours p.r.n. pain. 3. May shower. 4. Dressing change b.i.d. as directed per Troy Mendez MD, orders. Teach patient and aunt how to do these dressing changes. She may shower before one dressing change daily. We will evaluate p.r.n. or in a.m. Gina Hernandez PA-C /[id number]
[2020-09-30] MEDS ORDERED: Magnesium Hydroxide 400 MG/5 ML Susp 30 ML Cup PO ONE ×2 (12:15→17:00)
[2020-09-30] MEDS: Magnesium Oxide 400 MG Tab PO SCH (13:11)
[2020-09-30] MEDS: Baclofen 10 MG Tab PO PRN ×2 (13:13→20:44)
[2020-09-30] MEDS ORDERED: Baclofen 10 MG Tab PO SCH (14:00)
[2020-09-30] MEDS: Acetaminophen 325 MG Tab PO PRN ×2 (14:59→20:44)
[2020-09-30] MEDS: Fluconazole 100 MG Tab PO SCH (15:02)
[2020-09-30] MEDS ORDERED: hydrOXYzine HCL 100 MG/2 ML SDV IM PRN (17:34)
[2020-09-30] MEDS: Ibuprofen 600 MG Tab PO PRN (20:43)
[2020-10-01] MEDS: Ampicillin/Sulbactam Na 1.5 GM in Sodium Chloride 0.9% 50 ML IV SCH ×4 (03:29→21:25)
[2020-10-01] MEDS: Acetaminophen 325 MG Tab PO PRN ×4 (03:30→21:16)
[2020-10-01] MEDS: oxyCODONE 5 MG Tab PO PRN ×5 (03:30→21:16)
[2020-10-01] MEDS: Ibuprofen 600 MG Tab PO PRN ×3 (03:30→19:50)
[2020-10-01] MEDS: Amphetamine/Dextroamphetamine Salts 10 MG Tab PO SCH (08:21)
[2020-10-01] MEDS: Amphetamine/Dextroamphetamine Salts 10 MG Cap.ER PO SCH (08:21)
[2020-10-01] MEDS: Bisacodyl 5 MG Tab PO SCH ×2 (08:22→21:15)
[2020-10-01] MEDS: Lactobacillus Rhamnosus GG (Probiotic) Cap PO SCH ×2 (08:22→21:16)
[2020-10-01] MEDS: Docusate Sodium 100 MG Cap PO SCH ×2 (08:22→21:15)
[2020-10-01] MEDS: Baclofen 10 MG Tab PO PRN ×3 (08:23→23:32)
[2020-10-01] MEDS: Nicotine 7 MG/24 Hr Patch TRDERM SCH (08:29)
--- NOTE | 2020-10-01 11:11 | PN ---
DATE OF SERVICE: 10/01/2020 SUBJECTIVE: Kyra had some difficulty getting her pain under control. She was switched from cyclobenzaprine to baclofen and then ibuprofen was added to her pain regimen. She states that it is helping. Her dressings have been changed twice a day. She tolerates that well and she and her aunt have been shown how to change the dressing. She did have 2 bowel movements and is feeling better from that standpoint of view. REVIEW OF SYSTEMS: Remainder of review of systems negative for any pertinent positives and negatives. OBJECTIVE: GENERAL: Kyra Carreon is a pleasant 40-year-old female. VITAL SIGNS: TPR is 96.4, 64, 16. Blood pressure 108/59. HEENT: Negative. NECK: Supple. HEART: Regular rate and rhythm. LUNGS: Clear. ABDOMEN: Dressings dry and intact. There is a healing blood blister from a tape burn on the right of the incision. This was looked at. There was some concern, but it looks like it is healing well, clean and dry. EXTREMITIES: Without peripheral edema. ASSESSMENT: Wound incision and drainage under IV sedation. Troy Mendez MD. Date of procedure 09/29/2020. PLAN: 1. Home health care was set up for nursing and physical therapy. They will be available to come out and do the assessment tomorrow on 10/02/2020. Continue b.i.d. dressing changes. 2. Low-residue soft diet. 3. Medication are to remain the same. There was some discussion, but the pain should be getting better and more tolerable as the time goes on. Recommend that she ambulate 6 times a day. Use incentive spirometer. 4. We will evaluate p.r.n. or in a.m. Gina Hernandez PA-C /[id number]
[2020-10-01] MEDS: Magnesium Oxide 400 MG Tab PO SCH (11:32)
[2020-10-01] MEDS: Fluconazole 100 MG Tab PO SCH (15:20)
[2020-10-02] MEDS: oxyCODONE 5 MG Tab PO PRN ×3 (01:41→11:36)
[2020-10-02] MEDS: Acetaminophen 325 MG Tab PO PRN ×3 (01:41→11:35)
[2020-10-02] MEDS: Ampicillin/Sulbactam Na 1.5 GM in Sodium Chloride 0.9% 50 ML IV SCH (03:20)
[2020-10-02] MEDS: Ibuprofen 600 MG Tab PO PRN (06:45)
[2020-10-02] MEDS: Amphetamine/Dextroamphetamine Salts 10 MG Cap.ER PO SCH (08:55)
[2020-10-02] MEDS: Docusate Sodium 100 MG Cap PO SCH (08:55)
[2020-10-02] MEDS: Baclofen 10 MG Tab PO PRN (08:55)
[2020-10-02] MEDS: Amphetamine/Dextroamphetamine Salts 10 MG Tab PO SCH (08:55)
[2020-10-02] MEDS: Lactobacillus Rhamnosus GG (Probiotic) Cap PO SCH (08:56)
[2020-10-02] MEDS: Nicotine 7 MG/24 Hr Patch TRDERM SCH (08:56)
[2020-10-02] MEDS: Bisacodyl 5 MG Tab PO SCH (08:56)
--- NOTE | 2020-10-04 08:04 | DISCH ---
ADMISSION DIAGNOSES: 1. Abdominal pain. 2. Status post right colon resection. 3. Constipation. DISCHARGE DIAGNOSES: 1. Wound incision and drainage under IV sedation. 2. Date of procedure 09/29/2020. Surgeon: Troy Mendez MD. HISTORY: Kyra Carreon is a 40-year-old female who had a right colectomy and was discharged to home. She came back into the emergency room with the lower part of her incision draining. She was admitted to the hospital on 09/28/2020 and was started on antibiotics. On 09/29/2020, she was taken to the operating room and her wound was opened and drained under IV sedation and she tolerated that procedure well. On 09/30/2020, pain was controlled with the FRONT SERVICES AGENT and this was discontinued and she was started on oral pain medication. Dressing changes were started and to be done twice daily. Vital signs remained stable and intake and output adequate. On 10/01/2020, her aunt was taught how to pack and change her dressings. Pain was managed with oxycodone, baclofen, ibuprofen, and acetaminophen. A Physical Therapy consult was obtained. She tolerated a low residue soft diet and was able to be discharged to home in good condition on 10/02/2020 with home health care. PHYSICAL EXAMINATION: GENERAL: Kyra Carreon is a pleasant 40-year-old female. She is alert and orientated. VITAL SIGNS: Height is 5 feet 10 inches. Weight is 222 pounds. BMI is 31. TPR is 97.2, 79, and 18. Blood pressure 114/73. HEENT: Negative. NECK: Supple. HEART: Regular rate and rhythm. LUNGS: Clear. ABDOMEN: Dressing dry and intact. She has a small healing blood blister to the right of the incision, which looks good. EXTREMITIES: Without peripheral edema. The patient's last bowel movement was 10/02/2020. DISPOSITION: Discharged to home with home health care through [facility]. FOLLOWUP: With Troy Mendez MD, on 10/06/2020 at 8 a.m. MEDICATIONS: New prescriptions: 1. Augmentin 875 mg 1 oral twice daily, #20. 2. Baclofen 10 mg oral 3 times a day p.r.n. for muscle spasms, #30. 3. Culturelle 1 capsule oral twice daily, #60. 4. Oxycodone 5 mg every 4 hours p.r.n. pain, #42. 5. Ibuprofen 600 mg q.6 hours p.r.n. pain. 6. Tylenol 650 mg q.4 hours p.r.n. pain. She is to resume home medications: 1. Propranolol 1 tablet 3 times a day p.r.n. anxiety. 2. Adderall XR 10 mg daily. 3. Valtrex 1000 mg oral daily p.r.n. cold sore breakout. 4. Meclizine 25 mg oral 3 times a day p.r.n. dizziness. 5. Lutein 20 mg oral daily. 6. Flonase 2 sprays in each nostril twice daily. 7. Fish oil 1 tablet daily. 8. Adderall 15 mg in addition to the 10 mg daily. 9. Zyrtec 10 mg oral daily. 10.Norethindrone 0.35 oral daily for breakthrough bleeding. 11.Magnesium 500 mg oral daily. DIET: GI soft, low-residue, low-fiber diet. Drink 8 to 10 glasses of water a day. ACTIVITY: No lifting greater than 10 pounds for 6 weeks. Other activity: Walk at least 6 times daily inside your home. Do not drive within 8 hours of taking narcotic pain medication. Shower/bathing: May shower. DISCHARGE INSTRUCTIONS: Notify provider if any fever, increased pain, swelling, redness, drainage, nausea, vomiting. Keep site clean and dry. Dressing changes; remove packing, #2, repack with 3 to 4 pieces of gauze and cover with ABD dressing. Change dressings twice a day. Wear abdominal binder for 6 weeks. SPECIAL INSTRUCTION: Use incentive spirometer 10 times every hour while awake. Paper prescriptions written for bed cane, shower bench, toilet seat riser, and bed rail for postoperative open wound. /[id number]
--- NOTE | 2020-10-06 17:29 | OR ---
DATE OF PROCEDURE: 09/29/2020 SURGEON: Troy Mendez MD PREOPERATIVE DIAGNOSIS: Lower abdominal discomfort with serous drainage of lower midline abdominal incision. POSTOPERATIVE DIAGNOSIS: Seroma, lower midline abdominal incision (not clinically infected). OPERATIVE PROCEDURE: Incision and drainage of seroma, lower midline abdominal incision (11087). ANESTHESIA: Local plus IV sedation. INDICATION FOR PROCEDURE: The patient is status post recent low anterior resection for a perforated diverticulitis with pericolonic abscess. The patient presents now with some serous-appearing drainage from the lower abdomen along with some increasing discomfort. Plan is to proceed with drainage and exploration of the wound. The patient is fairly obese in this area, might be accounting for the problem to a large extent. The potential risks including further bleeding and infection were reviewed and the patient wishes to proceed. DETAILS OF PROCEDURE: The patient was taken to the operating room and placed in a supine position. IV sedation was administered, after which the previous glenn were removed from the lower midline incision and the subcutaneous tissue sutures were then cut. Some clear serous drainage was noted to come from the incision. The patient had no swelling, redness, or significant induration of the soft tissues along the edge of the incision and the area was not clinically infected. The fluid was evacuated and the underlying fascia inspected and found to be intact. The wound was then packed open with iodoform gauze. The wound edges had been anesthetized with 1% lidocaine mixed with Marcaine. Bilateral transversus abdominis plane blocks were then placed as well using ultrasound guidance, and the patient was taken to the recovery room in satisfactory condition. Troy Mendez MD /[id number]
== END 2020-10-02 11:59 | disposition home health service (06) | DRG 791 ==
LOC: JP.ED 11:46 → JP.MS 14:52
PROVIDERS: ADMIT Hospitalist; ATTEND Hospitalist
PROC: 0J980ZZ Drainage of Abdomen Subcutaneous Tissue and Fascia, Open Approach (ICD-10-PCS; principal; 2020-09-29)
DX: L76.34 Postprocedural seroma of skin and subcutaneous tissue following other procedure (principal); K59.00 Constipation, unspecified; H54.7 Unspecified visual loss; F17.210 Nicotine dependence, cigarettes, uncomplicated; F90.9 Attention-deficit hyperactivity disorder, unspecified type; Y83.8 Other surgical procedures as the cause of abnormal reaction of the patient, or of later complication, without mention of misadventure at the time of the procedure; Z90.49 Acquired absence of other specified parts of digestive tract; Z79.899 Other long term (current) drug therapy
CPT/HCPCS: 36415; 74019; 74019-26; 74177; 74177-26; 80053; 85025; 85027; 87070; 87077; 87186; 87205; 94762; 97110-GP; 97161-GP; 97535-GP; 99222; 99284; A9270-GY; J0295; J1170; J2020; J2185; J2250; J2405; J2704; J3010; J3490; J7030; Q9967

== ENCOUNTER 2021-08-26 08:33 | Emergency (ER) | payer OTHER, BC, MEDICAID | END 2021-08-26 08:58 | disposition home or self-care (01) | LOC: JP.ED 08:33 | DX: H92.02 Otalgia, left ear (principal) | CPT/HCPCS: 99282; 99283 ==